=== PATIENT | female | born 2000 | race Caucasian/White ===

== ENCOUNTER 2024-10-30 08:43 | Emergency (ER) | payer BC, SELFPAY ==
--- NOTE | 2024-10-30 08:48 | ED.URI ---
HPI - URI/Sore Throat General Chief Complaint: Upper Respiratory Infection Stated Complaint: fever, sore throat, body aches, sinus inf Time Seen by Provider: 10/30/24 09:01 Source: patient and RN notes reviewed Mode of arrival: ambulatory Limitations: no limitations History of Present Illness HPI Narrative: 24-year-old female who is 6 weeks presents with concern for sore throat, body aches, runny nose. Reports intermittent fever. She has been taking Tylenol. 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 MD elicited complaint: sore throat Related Data Allergies Allergy/AdvReac Type Severity Reaction Status Date / Time No Known Allergies Allergy Verified 10/30/24 08:58 Review of Systems Review of Systems: CONSTITUTIONAL: Reports malaise, fever. EYES: Denies visual changes, redness, or discharge. ENT: Reports rhinorrhea, congestion, and sore throat. CARDIOVASCULAR: Denies chest pain, palpitations, or edema. RESPIRATORY: Denies cough. Denies dyspnea. GASTROINTESTINAL: Denies abdominal pain, nausea, vomiting, diarrhea SKIN: Denies rash or itching. MUSCULOSKELETAL: Reports myalgia. NEUROLOGIC: Denies headache. All systems reviewed & are unremarkable except as noted in HPI and below PMFSH Comments At time of signature, agree with nursing past medical, surgical, social and family history. There is no relevant family history pertinent to the presenting complaint Exam Narrative: GENERAL: Well-appearing, well-nourished, and in no acute distress. HEAD: Normocephalic EYES: PERRLA, conjunctivae clear ENT: Nares clear. Mucous membranes moist. TM pearly yin with sharp light reflex bilaterally; no tragal tenderness. Oropharynx mildly erythematous without lesions. Tonsils not enlarged and without exudate, no drooling, no hoarseness, no trismus, uvula midline. NECK: Supple. No lymphadenopathy CHEST: Clear to auscultation, breath sounds equal. No wheezing, rhonchi, rales, or stridor. No respiratory distress, speaks in full sentences. HEART: Regular rate and rhythm. No murmur heard. SKIN: Warm, dry, no rash. NEURO: Alert and oriented x3. PSYCH: Normal mood and affect Course Course Emergency Course: Patient is aware of diagnosis, understands and agrees to treatment plan. Anticipatory guidance given. Patient agrees to follow-up as directed and is aware of reasons to seek care at the emergency department. Portions of this record may have been created with voice recognition software Level of Care: Express Care Visit Vital Signs Vital signs: Reviewed. MDM - URI/Sore Throat MDM Narrative Medical decision making narrative: Differential diagnosis considered: Acuña virus, strep pharyngitis, allergic rhinitis, upper respiratory tract infection, sinusitis, rhinosinusitis, nasopharyngitis. viral pharyngitis, otitis media, otitis externa, pneumonia, bronchitis, viral cough syndrome, viral syndrome, and influenza. Exam findings show no acute concerns or changes; patient is non-toxic appearing and is in no distress. Patient is appropriate for outpatient treatment and follow-up. Lab Data Attestation: I reviewed the patient's lab results. Critical Care Time Critical Care Time Critical Care Time: No Discharge Plan Discharge Clinical Impression: Upper respiratory infection Patient Disposition: Home Condition: Stable Instructions: Upper Respiratory Infection (ED) Additional Instructions: Your rapid COVID and flu tests are negative Your rapid strep swab was negative today at [facility]. A throat culture will be sent to the laboratory for further testing. If the test is positive, you will receive a phone call within 48 hours and an appropriate antibiotic will be initiated at that time. Your symptoms are likely due to a viral illness, which is not treated with antibiotics. Viral symptoms can be present for up to a few weeks. -take Tylenol per package directions for fever or pain. -Antihistamine medication such as Benadryl at night and Zyrtec during the day can help improve symptoms. -Eat and drink things that are easy to swallow, like tea or soup, or popsicles to suck on. -Oral rinses such as: Salt water gargles and/or may use topical anesthetic (eg. Chloraseptic spray) or lozenges to relieve dryness or throat pain). -Frequent hand washing or hand twitchell operator is one of the best ways to prevent spread of infection. -Follow up with primary care provider in 2-3 days if condition is not improving; or seek ER visit if you have trouble breathing, cannot drink enough fluids, have muffled voice, difficulty opening your mouth, or severe swelling. Patient Language: Frisian Follow-up/Referrals: Scooby Chavez MD [Primary Care Provider, Internal Medicine] Time of Disposition: 09:27
[2024-10-30 08:54] VITALS: BP 122/77; PULSE 96; RESP 16; TEMP 36.8; O2SAT 100
--- OUTSIDE RECORDS SUMMARY | 2024-10-30 08:54 | XMS_ITS | Clinical Summary ---
Author Organization [facility] Address [address] [place] [address] Care Team Providers Care Evp Operations Name Role Phone Scooby Chavez MD Primary Care Provider [phone] Source Comments [facility],non-owned Affiliates and Associated Physician Practices is amultiple site organization consisting of ambulatory clinics and hospital sitesin [place], [place], [place] and [place]. This disclosure is being madepursuant to the Care Everywhere program and may not contain all information available regarding this patient. Last updated 17.[facility] Allergies No known active allergies Medications * Be aware that medications may not be up to date on this document. Alwaysverify current medications with the patient. metoprolol tartrate IR (Lopressor) 25 MG tablet Take 0.5 (one-half) tablet by mouth once daily Active Vit-Fe Fumarate-FA ( vitamin) 28-0.8 MG tablet Take 1 (one) tablet by mouth once daily Active acetaminophen (Tylenol) 500 MG capsule Take 2 (two) capsules by mouth every 6 hours 50 capsule 1 4 Active ibuprofen (Motrin) 600 MG tablet Take 1 (one) tablet by mouth every 6 hours as needed for Pain 50 tablet 1 4 Active iron polysaccharides (Niferex 150) 150 MG capsule Take 1 (one) capsule by mouth once daily 100 capsule 1 4 Active docusate sodium (Colace) 100 MG capsule Take 1 (one) capsule by mouth once daily 100 capsule 4 Active polyethylene glycol 3350 (MiraLax) 17 GM/SCOOP powder Take 17 (seventeen) g by mouth once daily 118 g 4 Active plus iron (Natatab) 29-1 MG tablet Take 1 (one) tablet by mouth once daily 100 tablet 1 4 Active Active Problems Problem Noted Date Diagnosed Date Family history of malignant hyperthermia 024 Overview (08/23/2023): paternal grandfather Permanent atrial fibrillation 08/22/2023 Uterine contractions 07/22/2023 A-fib 03/19/2023 Immunizations Immunization Administration Dates Next Due MMR 08/24/2023(Deferred: - rubella i mmune) TDAP (7yrs+) 08/25/2023 Family History Medical History Relation Name Comments Arrhthymia Father Hypertension Father Cancer - Breast Mother Relation Name Status Comments Father Alive Mother Alive Social History Tobacco Use Types Packs/Day Years Used Date Smoking Tobacco: Never Smokeless Tobacco: Never Tobacco Cessation:Counseling Given: Yes Alcohol Use Standard Drinks/Week Comments Not Currently 0 (1 standard drink = 0.6 oz pur e alcohol) Overall Financial Resource Strain (CARDIA) Answe r Date Recorded How hard is it for you to pa y for the very basics like food, housing, medical care, and heating? Not hard at all 08/22/2023 PHQ-2 Answer Date Recorded Patient Health Questionnaire-2 Score 1 07/27/2023 [facility] - Occupational Stress Questionnaire Answer Date Recorded Do you feel stress - tense, restless, nervous, or anxious, or unable to sleep at night because your mind is troubled all the time - these days? Not at all 08/22/2023 Hunger Vital Sign Answer Date Recorded Within the past 12 months, y ou worried that your food would run out before you got the money to buy more. Never true 08/22/19 24 Within the past 12 months, t he food you bought just didn't last and you didn't have money to get more. Never true 08/22/2023 PRAPARE - Transportation Answer Date Re corded In the past 12 months, has l ack of transportation kept you from medical appointments or from getting medications? No 08/08 In the past 12 months, has l ack of transportation kept you from meetings, work, or from getting things needed for daily living? No 08/22/2023 Housing Stability Vital Sign Answer Micah e Recorded In the last 12 months, was t here a time when you were not able to pay the mortgage or rent on time? No 08/22/2023 In the last 12 months, how many places have you lived? 1 08/22/2023 In the last 12 months, was t here a time when you did not have a steady place to sleep or slept in a senior living (including now)? No 08/22/2023 Garvin Depression Scale Answer Date Recorded Garvin Depression Scale Total 4 08/24/2023 The thought of harming myself has occurred to me . Never 08/24/2023 Education Answer Date Recorded What is the highest level of school you have completed or the highest degree you have received? 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 Not on file Not on coleen e Last Filed Vital Signs Vital Sign Reading Time Taken Comments Blood Pressure 128/90 08/25/2023 8:10 AM CDT Pulse 102 08/24/2023 10:47 PM CDT Temperature 36.6 C (97.9 F) 08/25/2023 8:10 AM CDT Respiratory Rate 16 08/25/2023 8:10 AM CDT Oxygen Saturation 99% 08/25/2023 8:10 AM CDT Inhaled Oxygen Concentration - - Weight 78.9 kg (174 lb) 08/22/2023 8:11 PM CDT Height 165.1 cm (5' 5) 08/22/2023 8:11 PM CDT Body Mass Index 28.96 08/22/2023 8:11 PM CDT Plan of Treatment Health Maintenance Due Date Last Done Comments HPV VACCINE (1 - 3-dose series) 06/19/2014 CHLAMYDIA/GONORRHEA SCREENING 2015 HEPATITIS B VACCINE (1 of 3 - 19+ 3-dose series) 06/19/2018 PAP SMEAR 06/19/2020 COVID-19 VACCINE (1 - 2023-2 5 season) 2023 DEPRESSION SCREENING 03/10/2024 06/23/2023 INFLUENZA VACCINE (#1) 2024 DTAP/TDAP/TD VACCINES (2 - T d or Tdap) 08/24/2033 08/25/2023 ZOSTER VACCINE (1 of 2) 06/19/2049 HEPATITIS C SCREENING Completed 02/20/2023 HIV SCREENING Completed 06/13/2023 HIB VACCINE Aged Out No longer eligi ble based on patient's age to complete this topic MENINGOCOCCAL (Group B) VACC INE SHARED DECISION-MAKING Aged Out No longer eligibl e based on patient's age to complete this topic MENINGOCOCCAL GROUPS A/C/Y/W VACCINE Aged Out No longer eligible b ased on patient's age to complete this topic PNEUMOCOCCAL VACCINE Aged Out No long er eligible based on patient's age to complete this topic Insurance [facility] Address: [facility] [id number] [place] [address] Advance Directives * Full Code (Latest Code Status on File) Date Activated Date Inactivated Comments 08/22/2023 8:32 PM 08/25/2023 1:03 PM Care Teams Evp Operations Relationship Specialty Start Date End Date Scooby Chavez MD [address] [place] [address] PCP - General Internal Medicine 06/23/23
--- OUTSIDE RECORDS SUMMARY | 2024-10-30 08:54 | XMS_ITS | Clinical Summary ---
Author Organization [facility] Address [facility] [place] [address] Care Team Providers Care Co Supervisor Grounds And Landscape Name Role Phone Ml Perezdre DO Primary Care Provider [phone] Allergies No known active allergies Medications vitamin, low iron, 27-0.8 MG tablet Take 1 tablet by mouth daily. Active ASPIRIN LOW DOSE 81 MG tablet Take 1 tablet (81 mg total) by mouth daily. 03/17/2023 Active metoclopramide (REGLAN) 10 MG tablet Take 1 tablet (10 mg total) by mouth 4 (four) times daily. Active metoprolol succinate ER (TOPROL-XL) 25 MG 24 hr tablet Take 0.5 tablets (12.5 mg total) by mouth daily. 45 tablet 1 08/26/2023 Active Active Problems Problem Noted Date Diagnosed Date A-fib ([facility]/HCC [facility]/HCC) 03/19/2023 Social History Tobacco Use Types Packs/Day Years Used Date Smoking Tobacco: Never Smokeless Tobacco: Never [facility] Utilities Answer Date Recorded In the past 12 months has e [employer], gas, oil, or water company threatened to shut off services in your home? No 03/19/2023 Humiliation, Afraid, Rape, and Kick questionnair e Answer Date Recorded Within the last year, have y ou been afraid of your partner or ex-partner? No 03/19/2023 Within the last year, have y ou been humiliated or emotionally abused in other ways by your partner or ex-partner? No Within the last year, have y ou been kicked, hit, slapped, or otherwise physically hurt by your partner or ex-partner? No 03/19/2023 Within the last year, have y ou been raped or forced to have any kind of sexual activity by your partner or ex-partner? No 03/19/2023 AUDIT-C Answer Date Recorded Q1: How often do you have a drink containing alcohol? Never 03/19/2023 Q2: How many drinks containi ng alcohol do you have on a typical day when you are drinking? Patient does not drink Q3: How often do you have si x or more drinks on one occasion? Never 03/19/2023 Overall Financial Resource Strain (CARDIA) Answe r Date Recorded How hard is it for you to pa y for the very basics like food, housing, medical care, and heating? Not hard at all 03/19/2023 PHQ-2 Answer Date Recorded Patient Health Questionnaire-2 Score 0 04/23/2023 [facility] - Occupational Stress Questionnaire Answer Date Recorded Do you feel stress - tense, restless, nervous, or anxious, or unable to sleep at night because your mind is troubled all the time - these days? Not at all 03/19/2023 Hunger Vital Sign Answer Date Recorded Within the past 12 months, y ou worried that your food would run out before you got the money to buy more. Never true 03/19/19 24 Within the past 12 months, t he food you bought just didn't last and you didn't have money to get more. Never true 03/19/2023 PRAPARE - Transportation Answer Date Re corded In the past 12 months, has l ack of transportation kept you from medical appointments or from getting medications? No 03/10 In the past 12 months, has l ack of transportation kept you from meetings, work, or from getting things needed for daily living? No 03/19/2023 Housing Stability Vital Sign Answer Micah e Recorded In the last 12 months, was t here a time when you were not able to pay the mortgage or rent on time? No 03/19/2023 In the last 12 months, how many places have you lived? 1 03/19/2023 In the last 12 months, was t here a time when you did not have a steady place to sleep or slept in a jail (including now)? No 03/19/2023 Comments No Sex and Gender Information Value Date Recorded Sex Assigned at Not on file Legal Sex Female 1:46 AM CDT Gender Identity Not on file Sexual Orientation Not on file Last Filed Vital Signs Vital Sign Reading Time Taken Comments Blood Pressure 124/64 05/15/2023 2:47 PM AIRCONDITIONING PLANT OPERATOR Pulse 102 05/15/2023 2:47 PM AIRCONDITIONING PLANT OPERATOR Temperature 37.2 C (98.9 F) 04/23/2023 9:53 AM AIRCONDITIONING PLANT OPERATOR Respiratory Rate 20 04/23/2023 9:53 AM AIRCONDITIONING PLANT OPERATOR Oxygen Saturation 99% 05/15/2023 2:47 PM AIRCONDITIONING PLANT OPERATOR Inhaled Oxygen Concentration - - Weight 72.3 kg (159 lb 6.4 oz) 05/15/2023 2:47 P M AIRCONDITIONING PLANT OPERATOR Height 165.1 cm (5' 5) 05/15/2023 2:47 PM AIRCONDITIONING PLANT OPERATOR Body Mass Index 26.53 05/15/2023 2:47 PM AIRCONDITIONING PLANT OPERATOR Plan of Treatment Health Maintenance Due Date Last Done Comments Cervical Cancer Screening Pa p Smear (Age 21 to 29) Every 3 Years 1999 Cervical Cancer Screening 1999 Annual Physical 06/19/2002 HPV Vaccines (1 - 3-dose series) 06/19/2014 DTaP, Tdap and Td Vaccines ( 1 - Tdap) 06/19/2018 Hepatitis B Vaccines (1 of 3 - 19+ 3-dose series) 06/19/2018 COVID-19 Vaccine ( - 2023-2 5 season) 2023 PHQ-2 (Physician [place]) 03/10/2024 04/23/2023 Hepatitis C Completed 02/20/2023 Meningococcal B Vaccine Aged Out No l onger eligible based on patient's age to complete this topic Meningococcal Vaccine Aged Out No mario turner eligible based on patient's age to complete this topic Pneumococcal Vaccine: Pediat rics (0 to 5 Years) and At-Risk Patients (6 to 49 Years) Aged Out No longer eligi ble based on patient's age to complete this topic RSV Immunizations Under 20 Months Aged Out No longer eligible based on patient's age to complete this topic Goals Goal Patient Goal Type Associated Problems Recent Progress Patient-Stated? Author Health - patient able to perform ADLs independently Lifestyle No Josi, Maxime L, finisher card tender Procedure Name Priority Date/Time Associated Diagnosis Comments HEPATITIS C ANTIBODY Routine 02/20/2023 4:13 PM AIRCONDITIONING PLANT OPERATOR Encounter for screening (HHS/HCC) from Last 3 Months or Most Recently Relevant to Health Maintenance Results * HEPATITIS C ANTIBODY (02/20/2023 4:13 PM AIRCONDITIONING PLANT OPERATOR) HEPATITIS C AB NON-REACTI VE NON-REACTI VE 02/21/2023 12:08 PM AIRCONDITIONING PLANT OPERATOR [facility] 02/20/2023 4:13 PM AIRCONDITIONING PLANT OPERATOR [facility] Final Result [facility] [address] [place] [address], from Last 3 Months or Most Recently Relevant to Health Maintenance Insurance Advance Directives * Full Code (Latest Code Status on File) Date Activated Date Inactivated Comments 03/20/2023 12:15 AM 03/20/2023 5:04 PM Care Teams Co Supervisor Grounds And Landscape Relationship Specialty Start Date End Date Lucy Perez DO [address] [place] [address] PCP - General OBGYN 01/05/23
--- OUTSIDE RECORDS SUMMARY | 2024-10-30 08:54 | XMS_ITS | Clinical Summary ---
Author Organization [facility] [address] [place] [address] Care Team Providers Care City Editor Name Role Phone Unknown, Notinfile Primary Care Provider Unavail able Allergies No known active allergies Medications norethindrone (Kirti) 0.35 mg tabletIndications: Contraception Take 1 tablet (0.35 mg total) by mouth daily 84 tablet 4 4 Active Active Problems No known active problems Surgical History Surgery Date Site/Laterality Comments MENISCUS SURGERY 03/10/2014 - 03/09/2015 Medical History Medical History Date Comments Atrial fibrillation (HCC) Family History Medical History Relation Name Comments Breast cancer Maternal Grandmother Breast cancer Mother onset mid 40s. Unknown genetics. Relation Name Status Comments Maternal Grandmother Mother Social History Tobacco Use Types Packs/Day Years Used Date Smoking Tobacco: Never Smokeless Tobacco: Never Tobacco Cessation:Counseling Given: Not Answered Personal Safety Answer Date Recorded Getting School Help Needed Not on file 08/24 Comments No Sex and Gender Information Value Date Recorded Sex Assigned at Not on file Legal Sex Female 4:18 PM CDT Gender Identity Not on file Sexual Orientation Not on file Obstetrics History Para Term AB IAB SAB Ectopic Multiple Livin g Live Births 1 1 Date Outcome GA Total Labor Labor/2nd/3rd Weight Sex Type Anes PTL Keke A1 A5 Name Clin 2023 Term 39w 2d 0h 22m 0h 16m/0h 06m 2.82 kg (6 lb 3.5 oz) M Vag-S pont Epidur al N Livin g 7 9 Stetsnelida crawford MD Complications:None Delivery Location:[facility] ([facility] LDR) Comments 2023 - cytotec/pitocin IO L fo h/o a-fib. [facility] [place]. Last Filed Vital Signs Vital Sign Reading Time Taken Comments Blood Pressure 100/62 10/08/2023 10:19 AM CDT Pulse - - Temperature - - Respiratory Rate - - Oxygen Saturation - - Inhaled Oxygen Concentration - - Weight 70.8 kg (156 lb) 10/08/2023 10:19 AM CDT Height 165.1 cm (5' 5) 10/08/2023 10:19 AM CDT Body Mass Index 25.96 10/08/2023 10:19 AM CDT Plan of Treatment Health Maintenance Due Date Last Done Comments Depression Screening 1999 Hepatitis C Screening 1999 Varicella Vaccines (1 of 2 - 13+ 2-dose series) 06/19/2012 HPV Vaccines (1 - 3-dose series) 06/19/2014 Hepatitis B Screening 06/19/2017 Regular Well Visit/Exam 18-64 06/19/2017 Cervical Cancer Screening 10/07/2024 10/08/2023 Influenza Vaccine (#1) 2024 DTaP/Tdap/Td Vaccine (2 - Td or Tdap) 08/24/2033 08/25/2023 Pneumococcal vaccine <65 Aged Out No longer eligible based on patient's age to complete this topic Procedures Procedure Name Priority Date/Time Associated Diagnosis Comments PAP WITH REFLEX TO HIGH RISK HPV Routine 10/08/2023 9:18 AM CDT from Last 3 Months or Most Recently Relevant to Health Maintenance Results * Pap with reflex to High Risk HPV and Genotyping (Cytology Component) (10/08/2023 9:18 AM CDT) Pap test 10/08/2023 9:18 AM CDT 10/13/2023 9:18 AM CDT Narrative 10/16/2023 1:[address] [facility] Department of Pathology [address] [place] [address] Final Report Note to Patients: This report may contain a detailed description of human tissue sent by a health care provider to the laboratory for pathologic evaluation. The content of this report is essential for diagnosis and may provide important critical findings. This information may be unfamiliar to patients to review without a medical professional present. It is advised that the patient review this report in the presence of a health care provider who can answer questions and explain the details. Patient Name: NELLIE GALLARDO Address: [address] [place] [address] Gender: F : 2000 (Age: 23) Service: Location: N : [id number] [id number] Patient Type: [facility] SPECIMEN Taken: 10/08/2023 Received: 10/13/2023 Accessioned:: 10/13/2023 Reported: 10/16/2023 Physician(s): MD Ellie Morton MD Diagnosis: SOURCE OF SPECIMEN Imaged Thinprep Pap Test w/ Reflex HPV - Biodiesel Engineering Manager Cytologic Material: STATEMENT OF ADEQUACY - Satisfactory for evaluation; endocervical/transformation zone component present GENERAL CATEGORIZATION: - Negative for intraepithelial lesion or malignancy INTERPRETATION: - Inflammation and associated reactive cellular changes CHARLEEN Peck(ASCP)Thad Brady M.D. Report Electronically Reviewed and Signed Out By Thad Brady M.D. 10/16/2023 13:13:55Specimen(s) Received: A: Imaged Thinprep Pap Test w/ Reflex HPV - Biodiesel Engineering Manager Cytologic Material Clinical History: Menstrual History: The Pap test is a screening test used to aid in the detection of cervical cancer and its precursors. It should not be the sole means by which malignant and premalignant lesions are diagnosed. Both false negative and false positive results may occur. It also has poor sensitivity for the detection of endometrial lesions and should not be used to evaluate suspected endometrial abnormalities. For these reasons it is most important to obtain Pap tests at regular intervals. The performance characteristics of some immunohistochemical stains, fluorescence in-situ hybridization tests and immunophenotyping by flow cytometry cited in this report (if any) were determined by the Surgical Pathology Department at [facility] as part of an ongoing water quality assistant program and in compliance with federally mandated regulations drawn from the Clinical Laboratory Improvement Act of 1988 (CLIA '88). Some of these tests rely on the use of analyte specific reagents and are subject to specific labeling requirements by the US Food and Drug Administration. Such diagnostic tests may only be performed in a facility that is certified by the Department of Health and Human Services as a high complexity laboratory under CLIA '88. The FDA has determined that such clearance or approval is not necessary. This test is used for clinical purposes. It should not be regarded as investigational or for research. Nevertheless, federal rules concerning the medical use of analyte specific reagents require that the following disclaimer be attached to the report: This test was developed and its performance characteristics determined by the Surgical Pathology Department [facility]. It has not been cleared or approved by the U. S. Food and Drug Administration. Ellie Piña MD LAB CYTOLOGY ORDERABL ES Final Result from Last 3 Months or Most Recently Relevant to Health Maintenance Insurance [facility] Care Teams City Editor Relationship Specialty Start Date End Date Unknown, Notinfile PCP - General 08/25/23
[2024-10-30 09:27] LABS: EDCOVIDSCREEN Negative (Negative); EDINFLUASCREEN Negative (Negative); EDINFLUBSCREEN Negative (Negative); EDSTREPNEGPOS1 Negative (Negative)
== END 2024-10-30 09:31 | disposition home or self-care (01) ==
PROVIDERS: Emergency Provider Nurse Practitioner; PCP Internal Medicine
DX: J06.9 Acute upper respiratory infection, unspecified (principal); Z20.822 Contact with and (suspected) exposure to COVID-19
CPT/HCPCS: 87081; 87426; 87804; 87880; 99203; G0463

== ENCOUNTER 2024-11-11 04:34 | Emergency (ER) | payer BC, SELFPAY ==
[2024-11-11 04:47] VITALS: BP 130/87; PULSE 122; RESP 15; TEMP 37; O2SAT 99
[2024-11-11 04:58] LABS: BEDSIDEPREGUCG Positive (Negative)
[2024-11-11] MEDS: SODIUM CHLORIDE 0.9% IV 1,000 ML 999 ML IV CONT (05:02)
[2024-11-11] MEDS: ONDANSETRON INJ 4 MG/2 ML VIAL IV PUSH (05:02)
--- NOTE | 2024-11-11 05:05 | ED_ITS ---
HPI - Nausea/Vomiting/Diarrhea General Chief complaint: Nausea/Vomiting/Diarrhea Stated complaint: vomiting Time Seen by Provider: 11/11/24 04:37 History of Present Illness HPI Narrative: This is a 24-year-old female approximately 8 weeks by menstrual period who presents to ED for nausea and vomiting. Patient states that she is walking about 1:00 a.m. due to significant nausea vomiting. She has had countless episodes of emesis stent. She did have bad morning sickness during her 1st but not nearly this med. She has not had any abdominal pain, vaginal bleeding, discharge, dysuria, hematuria. She has not been losing weight. Her 1st Ob appointment is on Friday. Related Data Allergies Allergy/AdvReac Type Severity Reaction Status Date / Time No Known Allergies Allergy Verified 10/30/24 08:58 Review of Systems 2 Review of Systems: Gen.: Denies fevers or chills Eyes: Denies eye pain or visual change ENT: Denies congestion Respiratory: Denies shortness of breath or cough CV: Denies chest pain or palpitations GI: as per HPI denies burning, urgency, frequency or hematuria Musculoskeletal: Denies back pain or muscle pain Neuro: Denies numbness, tingling, weakness or focal weakness Skin: Denies rash Except as documented, all other systems reviewed and negative Exam 2 Narrative: APPEARANCE: No acute distress, nontoxic, resting in bed EYES: EOMI HEENT: Normocephalic, atraumatic, OMM RESPIRATORY: No respiratory distress Clear to auscultation bilaterally with no rhonchi wheezing or rales. CARDIOVASCULAR: Regular rate and rhythm without murmurs rubs or gallops. ABDOMINAL: Soft, nontender, nondistended, no rebound or guarding MUSCULOSKELETAl: Moves all extremities. No clubbing, cyanosis or edema. NEURO: Awake and alert. Following commands, speech normal, no focal deficits SKIN:: Warm, dry. No rashes lesions or abrasions PSYCHIATRIC: Normal affect/mood, Course Vital Signs Vital signs: Vital Signs Temperature 98.6 F 11/11/24 04:47 Pulse Rate 122 H 11/11/24 04:47 Respiratory Rate 15 11/11/24 04:47 Blood Pressure 130/87 11/11/24 04:47 Pulse Oximetry 99 11/11/24 04:47 Oxygen Delivery Room Air 11/11/24 04:47 Temperature 98.6 F 11/11/24 04:47 Pulse Rate 93 11/11/24 06:14 Respiratory Rate 16 11/11/24 06:14 Blood Pressure 108/73 11/11/24 06:14 Pulse Oximetry 99 11/11/24 06:14 Oxygen Delivery Room Air 11/11/24 04:47 MDM - Nausea/Vomiting/Diarrhea MDM Narrative Medical decision making narrative: 24-year-old female who presents to the ED for nausea and vomiting. Jed evaluation, patient was in no acute distress, afebrile, hemodynamically stable. Abdomen is soft and nontender. Patient was given 1 L NS bolus, Zofran. On re- evaluation, she had significant improvement of her nausea and did not vomit. Patient will be given prescription for Zofran, she was also educated on doxylamine and pyridoxine use. She has an appointment on Friday with her OB which I encouraged her to go to. Patient was agreeable to this plan. Given strict return precautions. Differential Diagnosis Differential diagnosis: Likely food poisoning, gastroenteritis, dehydration and other (nausea/vomiting in , UTI) Medical Records Attestation: I reviewed the patient's medical records. Lab Data Attestation: I reviewed the patient's lab results. 11/11/24 04:58 11/11/24 04:58 Labs: Lab Results 11/11/24 11/11/24 Range/Units 04:56 04:58 WBC 12.2 H (4.5-10.0) K/mm3 RBC 4.49 (4.2-5.4) M/mm3 Hgb 13.0 (12.0-15.0) g/dL Hct 38.3 (37.0-47.0) % MCV 85.3 (80-100) fl MCH 29.0 (26-34) pg MCHC 33.9 (32-36) g/dl RDW 12.4 (11.5-14.5) % Plt Count 273 (150-375) k/mm3 MPV 8.7 (7.4-10.4) fl Immature Gran % (Auto) 0.3 (0-0.5) % Neut % (Auto) 81.2 H (45.5-73.1) % Lymph % (Auto) 10.7 L (18.3-44.2) % [place] % (Auto) 7.5 (2.6-8.5) % Eos % (Auto) 0.1 (0-4.4) % Baso % (Auto) 0.2 (0.2-1.2) % Lymph # (Auto) 1.30 (0.9-3.2) K/mm3 [place] # (Auto) 0.9 H (0.1-0.6) K/mm3 Eos # (Auto) 0.0 (0-0.3) K/mm3 Baso # (Auto) 0.0 (0.0-0.1) K/mm3 Abs Immat Gran (auto) 0.04 H (0.00-0.031) K/mm3 Absolute Neuts (auto) 9.9 H (1.3-6.7) K/mm3 Absolute Nucleated RBC 0.000 (0.0-0.012) K/mm3 Nucleated RBC % 0.0 (0.0-0.2) % Sodium 132 L (137-145) mmol/L Potassium 3.8 (3.4-5.0) mmol/L Chloride 103 (98-107) mmol/L Carbon Dioxide 21 L (22-30) mmol/L Anion Gap 8 (4-12) mmol/L BUN 6 L (7-17) mg/dL Creatinine 0.50 L (0.7-1.0) mg/dL Estim Creat Clear Calc 129 ml/min Estimated GFR > 60 (59 - ) Glucose 105 (65-110) mg/dL Calcium 9.1 (8.4-10.2) mg/dL Total Bilirubin 0.4 (0.2-1.3) mg/dL AST 22 (14-36) U/L ALT 13 (6-35) U/L Alkaline Phosphatase 74 (38-126) U/L Total Protein 7.9 (6.3-8.2) g/dL Albumin 4.1 (3.5-5.1) g/dL Lipase 56 (23-300) U/L Urine Color Yellow (Yellow) Urine Appearance Clear (Clear) Urine pH 7.5 (5.0-9.0) Ur Specific [place] 1.010 (1.001-1.035) Urine Protein Negative (Negative) mg/dL Urine Glucose (UA) Negative (Negative) mg/dL Urine Ketones Trace H (Negative) mg/dL Ur Blood (Man) Negative (Negative) Urine Nitrate Negative (Negative) Urine Bilirubin Negative (Negative) Urine Urobilinogen 0.2 (<2.0) mg/dL Leukocyte Esterase Rfl Negative (Negative) NICK/UL POC Urine HCG, Qual Positive (Negative) Discharge Plan Discharge Clinical Impression: Nausea and vomiting during Patient Disposition: Home Condition: Stable Instructions: Antibiotic Form, Nausea and Vomiting in (ED) Additional Instructions: Take Zofran as prescribed. You may also take doxylamine 20 mg and pyridoxine AKA vitamin B6 20 mg q.12 hours for nausea and vomiting. Follow-up with your OB as scheduled. Return to the ED for any new or worsening symptoms. Patient Language: Upper Sorbian Prescriptions: New ondansetron 4 mg tablet,disintegrating 4 mg PO Q8H PRN (Reason: nausea and vomiting) Qty: 30 0RF Follow-up/Referrals: Scooby Chavez MD [Primary Care Provider, Internal Medicine]
[2024-11-11 05:06] VITALS: BP 121/78; PULSE 112; RESP 18; O2SAT 98
[2024-11-11 05:10] LABS: Hematocrit 38.3 % (37.0-47.0); Hemoglobin 13.0 g/dL (12.0-15.0); Immature Granulocyte Percent A 0.3 % (0-0.5); Lymphocytes Absolute Auto 1.30 K/mm3 (0.9-3.2); Mean Corpuscular HGB Conc 33.9 g/dl (32-36); Mean Corpuscular Hemoglobin 29.0 pg (26-34); Mean Corpuscular Volume 85.3 fl (80-100); Nucleated Red Blood Cells Absolute Auto 0.000 K/mm3 (0.0-0.012); Nucleated Red Blood Cells Perc 0.0 % (0.0-0.2); Platelet Count Result 273 k/mm3 (150-375); Red Blood Count 4.49 M/mm3 (4.2-5.4); White Blood Count 12.2 K/mm3 (4.5-10.0)
[2024-11-11 05:12] LABS: Add Urine Microscopic? NO; Appearance Urine Clear (Clear); Glucose Urine UA Negative (Negative); Leukocyte Esterase Ur Negative LEU/UL (Negative); Nitrate Urine Negative (Negative); Specific Grav Ur 1.010 (1.001-1.035)
[2024-11-11 05:16] VITALS: BP 107/73; PULSE 101; RESP 20; O2SAT 98
[2024-11-11 05:22] LABS: Alanine Aminotransferase 13 U/L (6-35); Albumin Level 4.1 g/dL (3.5-5.1); Alkaline Phosphatase 74 U/L (38-126); Anion Gap 8 mmol/L (4-12); Aspartate Amino Transferase 22 U/L (14-36); Bilirubin,Total 0.4 mg/dL (0.2-1.3); Blood Urea Nitrogen 6 mg/dL (7-17); Calcium 9.1 mg/dL (8.4-10.2); Carbon Dioxide 21 mmol/L (22-30); Chloride 103 mmol/L (98-107); Estimated CRCL calculation 129 ml/min; Estimated Glomerular Filt Rate > 60; Glucose 105 mg/dL (65-110); Lipase 56 U/L (23-300); Potassium 3.8 mmol/L (3.4-5.0); Sodium 132 mmol/L (137-145); Total Protein 7.9 g/dL (6.3-8.2)
--- OUTSIDE RECORDS SUMMARY | 2024-11-11 05:46 | XMS_ITS | Clinical Summary ---
Author Organization [facility] Address [address] [place] [address] Care Team Providers Care Word Processor Operator Name Role Phone Scooby Chavez MD Primary Care Provider [phone] Source Comments [facility],non-owned Affiliates and Associated Physician Practices is amultiple site organization consisting of ambulatory clinics and hospital sitesin [place], [place], [place] and [place]. This disclosure is being madepursuant to the Care Everywhere program and may not contain all information available regarding this patient. Last updated 17.[facility] Allergies No known active allergies Medications * [...] Recorded Patient Health Questionnaire-2 Score 1 07/27/2023 [facility] - Occupational Stress [...] slept in a jail (including now)? 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
--- OUTSIDE RECORDS SUMMARY | 2024-11-11 05:46 | XMS_ITS | Clinical Summary ---
Author Organization [facility] Address [facility] [place] [address] Care Team Providers Care Ground Helper Street Railway Name Role Phone Ml Perezdre DO Primary Care Provider [phone] Allergies No known active allergies Medications vitamin, [...] Problems Problem Noted Date Diagnosed Date A-fib ([facility]/HCC [facility]/HCC) 03/19/2023 Social History Tobacco Use Types Packs/Day Years Used Date Smoking Tobacco: Never Smokeless Tobacco: Never [facility] Utilities Answer Date Recorded In the past 12 months has e [employer], gas, oil, or water company threatened to [...] Recorded Patient Health Questionnaire-2 Score 0 04/23/2023 [facility] Occupat ional Health - [...] place to sleep or slept in a mcc (including now)? No 03/19/2023 Comments No Sex and Gender Information Value Date Recorded Sex Assigned at Not on file Legal Sex Female 1:46 AM CDT Gender Identity Not on file Sexual Orientation Not on file Last Filed Vital Signs Vital Sign Reading Time Taken Comments Blood Pressure 124/64 05/15/2023 2:47 PM [employer] Pulse 102 05/15/2023 2:47 PM [employer] Temperature 37.2 C (98.9 F) 04/23/2023 9:53 AM [employer] Respiratory Rate 20 04/23/2023 9:53 AM [employer] Oxygen Saturation 99% 05/15/2023 2:47 PM [employer] Inhaled Oxygen Concentration - - Weight 72.3 kg (159 lb 6.4 oz) 05/15/2023 2:47 P M [employer] Height 165.1 cm (5' 5) 05/15/2023 2:47 PM [employer] Body Mass Index 26.53 05/15/2023 2:47 PM [employer] Plan of Treatment Health Maintenance Due Date [...] - 2023-2 5 season) 2023 PHQ-2 (Physician [place]) 03/10/2024 04/23/2023 Hepatitis C Completed 02/20/2023 Meningococcal [...] ADLs independently Lifestyle No Josi, Maxime L, motion picture narrator Procedure Name Priority Date/Time Associated Diagnosis Comments HEPATITIS C ANTIBODY Routine 02/20/2023 4:13 PM [facility] Encounter for screening (HHS/HCC) from Last 3 Months or Most Recently Relevant to Health Maintenance Results * HEPATITIS C ANTIBODY (02/20/2023 4:13 PM [facility]) HEPATITIS C AB NON-REACTI VE NON-REACTI VE 02/21/2023 12:08 PM [facility] 02/20/2023 4:13 PM [facility] Final Result [facility] [address] [place] [address], from Last 3 Months or Most Recently Relevant to Health Maintenance Insurance Advance Directives * Full Code (Latest Code Status on File) Date Activated Date Inactivated Comments 03/20/2023 12:15 AM 03/20/2023 5:04 PM Care Teams [address] Railway Relationship Specialty Start Date End Date Lucy Perez DO [address] [place] [address] PCP - General OBGYN 01/05/23
[2024-11-11 06:14] VITALS: BP 108/73; PULSE 93; RESP 16; O2SAT 99
== END 2024-11-11 06:15 | disposition home or self-care (01) ==
PROVIDERS: Emergency Provider Student in an Organized Health Care Education/Training Program; PCP Internal Medicine
DX: O21.9 Vomiting of pregnancy, unspecified (principal); Z3A.08 8 weeks gestation of pregnancy
CPT/HCPCS: 36415; 80053; 81003; 81025; 83690; 85025; 96361; 96374; 99284; J2405; J7030

== ENCOUNTER 2024-12-20 13:28 | Outpatient (CLI) | payer BC, SELFPAY ==
--- OUTSIDE RECORDS SUMMARY | 2024-12-20 14:44 | XMS_ITS | Clinical Summary ---
Author Organization [facility] Address Counts include 234 beds at the [facility] [place] [address] Care Team Providers Care Resource Manager Forester Name Role Phone Ml Perezdre DO Primary Care Provider [phone] Allergies No known active allergies Medications vitamin, [...] Problems Problem Noted Date Diagnosed Date A-fib 03/19/2023 Social History Tobacco Use Types Packs/Day Years Used Date Smoking Tobacco: Never Smokeless Tobacco: Never [facility] Utilities Answer Date Recorded In the past 12 months has [employer], gas, oil, or water [employer] threatened to shut off services in your [...] Recorded Patient Health Questionnaire-2 Score 0 04/23/2023 [facility] of Occupat ional [facility] - Occupational Stress Questionnaire Answer Date Recorded [...] place to sleep or slept in a detention (including now)? No 03/19/2023 Comments No Sex and Gender Information Value Date Recorded Sex Assigned at Not on file Legal Sex Female 1:46 AM CDT Gender Identity Not on file Sexual Orientation Not on file Last Filed Vital Signs Vital Sign Reading Time Taken Comments Blood Pressure 124/64 05/15/2023 2:[address] MAINTENANCE CREW WORKER Pulse 102 05/15/2023 2:[address] MAINTENANCE CREW WORKER Temperature 37.2 C (98.9 F) 04/23/2023 9:[address] MAINTENANCE CREW WORKER Respiratory Rate 20 04/23/2023 9:[address] MAINTENANCE CREW WORKER Oxygen Saturation 99% 05/15/2023 2:[address] MAINTENANCE CREW WORKER Inhaled Oxygen Concentration - - Weight 72.3 kg (159 lb 6.4 oz) 05/15/2023 2:[address] MAINTENANCE CREW WORKER Height 165.1 cm (5' 5) 05/15/2023 2:[address] MAINTENANCE CREW WORKER Body Mass Index 26.53 05/15/2023 2:[address] MAINTENANCE CREW WORKER Plan of Treatment Health Maintenance Due Date Last Done Comments Cervical Cancer Screening Pa p Smear (Age 21 to 29) Every 3 Years 2000 Cervical Cancer Screening 2000 Annual Physical 06/19/2002 HPV Vaccines (1 - 3-dose series) 06/19/2014 DTaP, Tdap and Td Vaccines ( 1 - Tdap) 06/19/2018 Hepatitis B Vaccines (1 of 3 - 19+ 3-dose series) 06/19/2018 PHQ-2 (Physician [place]) 03/10/2024 04/23/2023 COVID-19 Vaccine (1 - 2023-2 5 season) 2024 Influenza Adult (#1) 2024 Hepatitis C Completed 02/20/2023 Meningococcal B Vaccine [...] patient able to perform ADLs independently Lifestyle Maxime Garcia die reamer Procedure Name Priority Date/Time Associated Diagnosis Comments HEPATITIS C ANTIBODY Routine 02/20/2023 4:[address] MAINTENANCE CREW WORKER Encounter for screening (HHS/HCC) from Last 3 Months or Most Recently Relevant to Health Maintenance Results * HEPATITIS C ANTIBODY (02/20/2023 4:[address] MAINTENANCE CREW WORKER) HEPATITIS C AB NON-REACTI VE NON-REACTI VE 02/21/2023 12:[address] MAINTENANCE CREW WORKER [facility] 02/20/2023 4:[address] MAINTENANCE CREW WORKER [facility] Final Result [facility] [address] [place] [id number], from Last 3 Months or Most Recently Relevant to Health Maintenance [place] [address] [place] [address] Advance Directives * Full Code (Latest Code Status on File) Date Activated Date Inactivated Comments 03/20/2023 12:15 AM 03/20/2023 5:04 PM Care Teams Resource Manager Forester Relationship Specialty Start Date End Date Lucy Perez DO [address] [place] [address] PCP - General OBGYN 01/05/23
--- OUTSIDE RECORDS SUMMARY | 2024-12-20 14:44 | XMS_ITS | Clinical Summary ---
Author Organization [facility] Address [address] [place] [address] Care Team Providers Care Behavioral Health Specialist Name Role Phone Scooby Chavez MD Primary Care Provider [phone] Source Comments [facility],non-owned Affiliates and Associated Physician Practices is amultiple site organization consisting of ambulatory clinics and hospital sitesin [place], [place], [place]. This disclosure is being madepursuant to the Care Everywhere program and may not contain all information available regarding this patient. Last updated 17.[facility] Allergies No known active allergies Medications * [...] fibrillation 08/22/2023 Uterine contractions 07/22/2023 A-fib 03/19/2023 Encounters Date Type Department Care Team Description 12/13/2024 Travel from Last 3 Months Immunizations Immunization Administration Dates Next Due MMR [...] Recorded Patient Health Questionnaire-2 Score 1 07/27/2023 [facility] - Occupational Stress Questionnaire Answer Date [...] place to sleep or slept in a [place] health care facility (including now)? 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 on file [...] 08/22/2023 8:11 PM CDT Plan of Treatment Upcoming Encounters Date Type Department Care Team (Late st Contact Info) Description 01/18/2025 9:00 AM RAW STOCK MACHINE FEEDER Appointment [facility] [address] [place] [address] 01/18/2025 9:45 AM RAW STOCK MACHINE FEEDER Appointment [facility] [address] [place] [address] Health Maintenance Due Date Last Done Comments HIV SCREENING 06/19/2014 HPV VACCINE (1 - 3-dose series) 06/19/2014 HEPATITIS B VACCINE (1 of 3 - 19+ 3-dose series) 06/19/2018 DEPRESSION SCREENING 03/10/2024 06/23/2023 COVID-19 VACCINE (1 - 2023-2 5 season) 2024 INFLUENZA VACCINE (#1) 2024 12/29/2023 CHLAMYDIA/GONORRHEA SCREENING 11/15/2025 11/15/2024 PAP SMEAR 10/07/2026 10/08/2023 DTAP/TDAP/TD VACCINES (2 - T d or Tdap) 08/24/2033 08/25/2023 ZOSTER VACCINE (1 of 2) 06/19/2049 HEPATITIS C SCREENING Completed 02/20/2023 HIB VACCINE Aged Out No longer eligi [...] patient's age to complete this topic Insurance [employer] Advance Directives * Full Code (Latest Code Status on File) Date Activated Date Inactivated Comments 08/22/2023 8:32 PM 08/25/2023 1:03 PM Care Teams Behavioral Health Specialist Relationship Specialty Start Date End Date Scooby Chavez MD [address] [place] [address] PCP - General Internal Medicine 06/23/23
--- OUTSIDE RECORDS SUMMARY | 2024-12-20 14:44 | XMS_ITS | Data Portability ---
Author Organization [facility] Address [address] [place] [address] Assessment Encounter Date Assessment Date Assessment LastModified by Organization Details LastModified Time 11/15/2024 11/15/2024 Patient is ___weeks . Discussed plan. Not available 11/15/2024 17:05:13 Plan of Treatment Reminders Order Date Submit Date Provider Last Modified By Organization Details Last Modified Time Details Appointments xANY 2024 11:00A M Patient Financial Coor Not available Not available Not available OB ROUTINE 2024 11:15A M TAWNY GERONIMO MD Not available Not available Not available Lab drug screen, urine 2024 025 [email or web address] [address], [address], [place], [address], 12/17/2024 11:51:29 Referral None recorded . Procedures None recorded . Surgeries None recorded . Imaging US, obstetri c, nuchal transluc ency 2024 025 [email or web address] [address], [address], [place], [address], 12/17/2024 11:40:15 US, obstetri c, transvag inal 2024 025 [email or web address] [address], [address], [place], [address], 11/16/2024 19:42:30 Medication Orders Adult Low Dose Aspirin 81 mg tablet,d elayed release 2024 025 [id number] [address], [place], [place], [id number], 12/17/2024 11:58:12 Patient TargetsNo targets recorded. Patient InstructionsNo instructions recorded. Reason for Referral None Reported. Results Created Date Observation Date Name Description Value Unit Range Abnormal Flag Note LastModifiedBy Organization Detail LastModifiedTime 11/16/1911/15/2024 CT/GC AND TRICH OMONA S VAGIN AI (RRNA ), URINE chlamydia trachomatis, PCR Negati ve negati ve Not Available [facility] (Lab) [address], [place], [address], 11/16/2024 14:47:12 11/16/19 25 11/15/2024 CT/GC AND TRICH OMONA S VAGIN AI (RRNA ), URINE neisseria gonorrhoeae, PCR Negati ve negati ve Not Available [facility] (Lab) [address], [place], [address], 11/16/2024 14:47:12 11/16/19 25 11/15/2024 CT/GC AND TRICH OMONA S VAGIN AI (RRNA ), URINE trichomonas vaginalis ribosomal RNA (rrna) Negati ve negati ve Not Available [facility] (Lab) [address] [place], [address], 11/16/2024 14:47:12 12/18/1912/17/2024 drug scree n, urine Amphetamines : negati ve Not Available [place] [address], [place], [address], 12/17/2024 11:48:35 12/18/19 25 12/17/2024 drug scree n, urine Cannabinoids : negati ve Not Available [place] [address], [place], [address], 12/17/2024 11:48:35 12/18/19 25 12/17/2024 drug scree n, urine Cocaine: negati ve Not Available [place] [address], [place], [address], 12/17/2024 11:48:35 12/18/19 25 12/17/2024 drug scree n, urine Opiates: negati ve Not Available [facility] [address], [place], [address], 12/17/2024 11:48:35 12/18/19 25 12/17/2024 drug scree n, urine Phenocyclidi ne: negati ve Not Available [facility] [address], [place], [address], 12/17/2024 11:48:35 12/18/19 25 12/17/2024 drug scree n, urine Barbiturates : negati ve Not Available [facility] [address], [place], [address], 12/17/2024 11:48:35 12/18/19 25 12/17/2024 drug scree n, urine Benzodiazepi gee: negati ve Not Available [facility] [address], [place], [address], 12/17/2024 11:48:35 12/18/19 25 12/17/2024 drug scree n, urine Ethanol: negati ve Not Available [facility] [address], [place], [address], 12/17/2024 11:48:35 12/18/19 25 12/17/2024 drug scree n, urine Hallucinogen s: negati ve Not Available [place] [address], [place], [address], 12/17/2024 11:48:35 12/18/19 25 12/17/2024 drug scree n, urine Inhalants: negati ve Not Available [place] [address], [place], [address], 12/17/2024 11:48:35 12/18/1912/17/2024 drug scree n, urine Anabolic Steroids: negati ve Not Available [place] [address], [place], [address], 12/17/2024 11:48:35 11/16/19 25 11/15/2024 US, obste tric, trans vagin al No observ ation record ed. [email or web address] [place] [address], [place], [address], 11/15/2024 18:18:42 11/16/19 25 11/15/2024 US, obste tric, follo w-up No observ ation record ed. [email or web address] [address], [place], [address], 11/18/2024 13:27:51 12/18/19 25 12/17/2024 US, obste tric, nucha l trans lucen cy No observ ation record ed. [email or web address] [place] [address], [place], [address], 12/17/2024 13:01:43 12/18/19 25 12/17/2024 US, obste tric, follo w-up No observ ation record ed. [email or web address] [address], [place], [address], 12/17/2024 12:09:38 Result Notes None recorded. Problems Name Problem SNOMED Code Status Onset Date Resolution Date Notes Provider Name and Address Organization Details Recorded Time [id number] Active [place] - [facility] 17:07:59 Problem Notes None recorded. Procedures Surgical History Date Name Laterality Status Provider Name and Address Organization Details Recorded Time 11/12/19 23 Date of Last Pap Smear completed Eryn Oden [facility] 11/15/2024 17:10:58 03/10/19 15 reconstruction of anterior cruciate ligament of knee joint completed Eryn Oden [facility] 11/15/2024 17:15:10 Imaging Results None recorded. Procedure Notes None recorded. Medical Equipment None Reported. Allergies No known drug allergies Medications Name Sig Start Date Stop Date Status Note LastModified by Organization Details LastModified Time ondansetron 8 mg disintegrati ng tablet Place 1 tablet twice a day by translingua l route as needed. 2024 active Not Available Not Available Not Avai lable Adult Low Dose Aspirin 81 mg tablet,delay ed release Take 1 tablet every day by oral route. 2024 active Not Available Not Available Not Avai lable active Not Available Not Avai lable Not Available Vitals Date Recorded Body height Body mass index (BMI) Body weight Systolic And Diastolic Provider Name and Address Organization Details Last Updated DateTime 11/15/2024 165.1 cm 26.1 kg/m2 06435 g 127/78 mm[Hg] Eryn Oden [facility] 11/15/2024 17:08:52 Date Recorded Systolic And Diastolic Provider Name and Address Organization Details Last Updated DateTime 12/17/2024 122/88 mm[Hg] Janay Amaya CNM [address], [place], [address], [facility] 12/17/2024 12:02:13 Date Recorded Body height Body mass index (BMI) Body weight Systolic And Diastolic Provider Name and Address Organization Details Last Updated DateTime 12/17/2024 165.1 cm 26 kg/m2 84574.41 g 152/82 mm[Hg] Leslie Medina [facility] 12/17/2024 11:38:56 Social History Question Answer Notes LastModified by Organizat ion Details LastModified Time Tobacco Smoking Status Never Smoker Eryn el [facility] 11/15/2024 17:14:33 Do You Have An Advance Directive? No Information n ot available 11/15/2024 Are You Blind Or Do You Have Difficulty Seeing? No Information n ot available 11/15/2024 What Is Your Level Of Caffeine Consumption? Occasional Information not available 11/15/2024 How Much Tobacco Do You Chew? None Information not available 11/15/2024 In The 14 Days Before Symptom Onset, Have You Had Close Contact With A Laboratory-confirm ed COVID-19 While That Case Was Ill? No Information n ot available 11/15/2024 In The 14 Days Before Symptom Onset, Have You Had Close Contact With A Person Who Is Under Investigation For COVID-19 While That Person Was Ill? No Information not available 11/15/2024 Have You Been To An Area Known To Be High Risk For COVID-19? Yes Information not available 11/15/2024 Are You Deaf Or Do You Have Serious Difficulty Hearing? No Information not available 11/15/2024 What Type Of Diet Are You Following? REGULAR Information n ot available 11/15/2024 What Is The Highest Grade Or Level Of School You Have Completed Or The Highest Degree You Have Received? [id number] Information not available 11/15/2024 Are There Any Guns Present In Your Home? No Information not available 11/15/2024 Do You Use Protection During Sex? Usually Information not available 11/15/2024 Do You Use Your Seat Belt Or Car Seat Routinely? Yes Information not available 11/15/2024 Are You Sexually Active? Yes Information not available 12/17/2024 Do You Have Smoke And Carbon Monoxide Detectors In Your Home? Yes Information not available 11/15/2024 How Much Tobacco Do You Smoke? No Information not available 11/15/2024 Do You Use Sunscreen Routinely? Yes Information not available 11/15/2024 Has Tobacco Cessation Counseling Been Provided? No Information not available 11/15/2024 Have You Used IV Drugs? No Information not available 11/15/2024 Do You Have Difficulty Walking Or Climbing Stairs? No [email or web address] Information not available 12/17/2024 Sex: Unknown Functional Status Question Answer Note LastModified by Organizat ion Details LastModified Time Do you use any illicit or recreational drugs? No Information not available 11/15/2024 Do you or have you ever used any other forms of tobacco or nicotine? No Information not available 11/15/2024 What is your level of alcohol consumption? None Information not available 11/15/2024 Are you currently employed? Yes [email or web address] Information not available 12/17/2024 Are you able to walk independently without assistance or assistive devices? [email or web address] Information not available 11/15/2024 Are you able to care for yourself independently? 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 No [email or web address] Information not available 12/17/2024 What is your exercise level? Moderate Information not available 11/15/2024 Mental Status Question Answer Note LastModified by Organization D etails LastModified Time Do you feel stressed (tense, restless, nervous, or anxious, or unable to sleep at night)? [id number] [email or web address] Information not available 12/17/2024 Family History Relationship Description Onset Age of this Age Resolved Age Notes LastModified by Organization Details LastModified Time Paternal Grandfather Heart disease Not available 2024 17:09:13 Father Heart disease Not available 2024 17:09:13 Medical History Condition Response Allergies (Food, seasonal, environmental ) N Other N Breast Cancer N Drug/Latex Allergies/Reactions N Blood Transfusion N Dermatologic Disorders N Lung Disease N Defects or Inherited Disease N Breast Problem N Gestational Diabetes N Hematologic disorders N Anesthesia Complications N History of STI N Deep Vein Thrombosis N Polycystic ovary syndrome N Anxiety Disorder N Autoimmune disease N Arthritis N Infertility N Polyps N Acid Reflux (GERD) N History of abnormal pap N Cancer N Stroke N Varicosities N Neurologic/Epilepsy N Endometriosis N High Cholesterol N Headaches N Fibromyalgia N Kidney Disease N Heart Problems Y Kidney or Bladder Problems N Thyroid Problems N GI Problems N Eating Disorder N Anemia N Art (IVF or FET) N Psychiatric Illness N Ovarian Cancer N Diabetes N Pulmonary (TB, Asthma) N Hepatitis/Liver Disease N No Past Medical History N Eczema N Urinary Tract Infection N Abuse/Domestic Violence N Asthma N Trauma/Violence N Depression/ depression N Heart Disease N Pre-Eclampsia N Hypertension N Osteoporosis N Thrombophilias N Gynecological History Statement/Question Response Flow Moderate Date of LMP 09/17/2024 On BCP's at Conception? N N Was last menstrual period normal Y STIs/STDs N HPV Vaccine Y Duration of Flow (days) 5 Current Control Method Age at First Child 23 Are cycles usually normal Y Frequency of Cycle (Q days) 27 Sexually Active? Y N/A Menses Monthly Y Age of first menstrual cycle 10 Date of Last Pap Smear 11/11/2022 Sexual Problems? N Desired Control Method Condoms LMP Approximate N Obstetrics History GPAL:G 2 P 1 0 0 1 Type Value Full Term 1 Living 1 Total 2 Past Encounters Encounter ID Performer Location Encounter Start Date Encounter Closed Date Diagnosis/Indication Diagnosis SNOMED-CT Code Diagnosis ICD10 Code Diagnosis IMO Codes Diagnosis Note [id number] Aniceto Mcdonald MD [facility] [address] [address] 11/15/2024 16:19:50 11/15/2024 16:54:43 Uterine size for dates discrepancy 576604654 O26.841 Z3A.01 [id number] Aniceto Mcdonald MD [facility] [address] [address] 11/15/2024 16:21:39 11/15/2024 17:59:46 Amenorrhea 46863759 N91.2 [id number] this patient is a 29-year-ol d female who presents for amenorrhea . She is a positive test. Ultrasound revealed a 1st trimester gestation. Patient has no complaints . We talked about early care. Talked about genetic screening. We talked about her ultrasound results. We talked about the 12 week ultrasound that has genetic screening components . She was given recommenda tions on exercise, diet, over-the-c ounter medication s. We reviewed her obstetric history. We reviewed her medical history. We reviewed her social history. She will begin routine care at her next visit. History of AFib in . [facility] . [id number] [address] [address] 12/17/2024 10:55:00 12/17/2024 12:16:20 care status 905851399 Z34.91 [id number] Supraventr icular tachycardia 8089537 I47.10 [id number] Aniceto Mcdonald MD [place] [address] [address] 12/17/2024 10:56:39 12/17/2024 11:28:31 screening 610524101 Z36.82 Z3A.13 [id number] Health Concerns Section Related Observation LastModified by Organization Detai ls LastModified Time None Recorded Concern Status LastModified by Organization Details LastModified Time None Recorded Advance Directives Directive N: Payers Insurance Date Sequence Insurance Name Policy Number Policy Gonzalez Covered Member ID Gonzalez Member ID Guarantor Name 12/14/2024 1 [facility] ([facility]) [id number] Varun Schmitz [id number] Varun Schmitz Notes Date Note Type Note Provider Name and Address Organization Details Recorded Time 11/15/2024 text/html Generic HPI TemplateReported by Patient this patient is a 29-year-old female who presents for amenorrhea. She is a positive test. Ultrasound revealed a 1st trimester gestation. Patient has no complaints. We talked about early care. Talked about genetic screening. We talked about her ultrasound results. We talked about the 12 week ultrasound that has genetic screening components. She was given recommendations on exercise, diet, [id number] medications. We reviewed her obstetric history. We reviewed her medical history. We reviewed her social history. She will begin routine care at her next visit. Aniceto Mcdonald MD [address], [place], [address], [facility] 11/15/2024 17:53:48 OBGyn Episode Ob Episode Information Episode Created Date Number of Fetuses Patient Bloodtype Patient rh Status Prepregnancy Weight lbs Domestic Partner Domestic Partner Phone Father Name Document Preparer Microfilming Status 11/16/19 25 1 CLOSED Fetus Data First Name Last Name Admitted to NICU Weight (g) Sex Living Outcome Pediatric Complications Fetus ID Race Codes Race Delivery Type 2806.37 3704 M Full Term [id number] Vaginal Delivery Polo Calculation Initial Polo Date Initial Exam Date Initial Exam Provider Initial Ultrasound Date Last Menstrual Period Date Ultra Sound Weeks Gestation 0 Eighteen To Twenty Week Polo Update Ultra Sound Date Fundal Height At Umbil Quickening Date Ultra Sound Latest Weeks Gestation Final Polo Confirmed By Final Polo Confirmed Date Final Polo Date Ultra Sound Latest Days Gestation 0 0 Menstrual History Last Menstrual Date Menses Monthly On Bcp Conception Prior Menses Frequency Hcg Plus Date Menarche Onset Age Delivery Information Delivery Date Delivery Type Labor Anesthesia Weeks Gestation Incision Type Labor Labor Length Hrs Delivered By Post Complications Tubal Sterilization Discharge Date Comments 4 39.2 Discharge Information Feeding Method Contraceptive Method Maternal HG B and HCT Levels Ob Episode Information Episode Created Date Number of Fetuses Patient Bloodtype Patient rh Status Prepregnancy Weight lbs Domestic Partner Domestic Partner Phone Father Name Document Preparer Microfilming Status 12/17/19 25 1 157 OPEN Fetus Data First Name Last Name Admitted to NICU Weight (g) Sex Living Outcome Pediatric Complications Fetus ID Race Codes Race Delivery Type [id number] Polo Calculation Initial Polo Date Initial Exam Date Initial Exam Provider Initial Ultrasound Date Last Menstrual Period Date Ultra Sound Weeks Gestation 12/16/2024 11/15/2024 09/17/2024 7 Eighteen To Twenty Week Polo Update Ultra Sound Date Fundal Height At Umbil Quickening Date Ultra Sound Latest Weeks Gestation Final Polo Confirmed By Final Polo Confirmed Date Final Polo Date Ultra Sound Latest Days Gestation 12/18/19 25 0 06/25/19 26 0 Pre- Flowsheet Flowsheet Date 12/17/2024 Oleary Score Blood Edema Fundus Height Fundus Units Glucose Ketones Leukocytes Nitrite Labor Signs Protein Cervic Dilation Cervic Effacement Cervic Station Type Weight in lbs Pre/Post Dialysis Refused BP Diastolic BP Location Tested BP Systolic BP Type Fetus Heart Rate Present Fetus Movement Comments Flowsheet Date 12/17/2024 Oleary Score Blood Edema Fundus Height Fundus Units Glucose Ketones Leukocytes Nitrite Labor Signs Protein Cervic Dilation Cervic Effacement Cervic Station Type Weight in lbs Pre/Post Dialysis Refused Weight 156.028247059241 BP Diastolic BP Location Tested BP Systolic BP Type 82 L arm 152 sitting 88 122 Fetus Heart Rate Present Fetus Movement A No Comments reviewed previous hx, has mfm referral, no complications with previous vaginal delivery, us reviewed, plan surveillance system monitor for complaints of skipped beats only at hs, precautions and education f/u 4 weeks Menstrual History Last Menstrual Date Menses Monthly On Bcp Conception Prior Menses Frequency Hcg Plus Date Menarche Onset Age 0709/17/2024 true false 28 11 Delivery Information Delivery Date Delivery Type Labor Anesthesia Weeks Gestation Incision Type Labor Labor Length Hrs Delivered By Post Complications Tubal Sterilization Discharge Date Comments Discharge Information Feeding Method Contraceptive Method Maternal HG B and HCT Levels
--- OUTSIDE RECORDS SUMMARY | 2024-12-20 14:44 | XMS_ITS | Clinical Summary ---
Author Organization [facility] [address] Address [address] [place] [address] Care Team Providers Care Wind Turbine Engineer Name Role Phone Unknown, Notinfile Primary Care [...] 7 [phone] Stetsnelida crawford MD Complications:None Delivery Location:[facility] ([facility] [address]) Comments 2023 - cytotec/pitocin IO L fo h/o a-fib. [facility] [place]. Last Filed Vital Signs Vital Sign Reading [...] AM CDT Narrative 10/16/2023 1:13 PM CDT [facility] Department of Pathology [address] [place] [address] Final Report Note to Patients: This report [...] the details. Patient Name: NELLIE GALLARDO Address: [address] [place] [address] Gender: F : 2000 (Age: 23) Service: Location: N : [id number] [facility] #: [id number] Patient Type: [facility] SPECIMEN Taken: 10/08/2023 Received: 10/13/2023 Accessioned:: 10/13/2023 Reported: 10/16/2023 Physician(s): MD Ellie Morton MD Diagnosis: SOURCE OF SPECIMEN Imaged Thinprep Pap Test w/ Reflex HPV - Mapping Technician Cytologic Material: STATEMENT OF ADEQUACY - Satisfactory for evaluation; endocervical/transformation zone component present GENERAL CATEGORIZATION: - Negative for intraepithelial lesion or malignancy INTERPRETATION: - Inflammation and associated reactive cellular changes CHARLEEN Peck(ASCP)Thad Brady M.D. Report Electronically Reviewed and Signed Out By Thad Brady M.D. 10/16/2023 13:13:55Specimen(s) Received: A: Imaged Thinprep Pap Test w/ Reflex HPV - Mapping Technician Cytologic Material Clinical History: Menstrual History: The [...] determined by the Surgical Pathology Department at [facility] as part of an ongoing principal quality engineer program and in compliance with federally mandated [...] characteristics determined by the Surgical Pathology Department [facility]. It has not been cleared or approved by the [place]. [place]. Food and Drug Administration. Ellie Piña MD LAB CYTOLOGY ORDERABL ES Final Result from Last 3 Months or Most Recently Relevant to Health Maintenance Insurance [facility] Care Teams Wind Turbine Engineer Relationship Specialty Start Date End Date Unknown, Notinfile PCP - General 08/25/23
--- NOTE | 2024-12-29 12:18 | WPDHOLTEREM ---
Holter/Event Monitor Holter/Event Monitor Date of procedure: 12/20/24 Holter/Event Procedure: 3-7 Day Holter Monitor Indications: Palpitations Conclusion: 1. 3 days holter monitor on 12/20/24. 2. Underlying rhythm is sinus rhythm. HR range 62-139 bpm; average HR 88 bpm. 3. There are occasional premature supraventricular complexes and rare supraventricular couplets. No supraventricular tachycardia. 4. There are rare premature ventricular complexes, rare ventricular couplets and longest ventricular trigeminy was 5.7 seconds. No ventricular tachycardia. 5. No significant pauses greater than 3 seconds. 6. Patient reports 6 episodes of symptoms of irregular beats which demonstrate sinus rhythm, HR range 78-87 bpm with 6 episodes with PAC or PVC.
== END 2024-12-20 13:29 | disposition home or self-care (01) ==
PROVIDERS: PCP Internal Medicine; Visit Provider Advanced Practice Midwife
DX: R00.2 Palpitations (principal); I49.1 Atrial premature depolarization; I49.3 Ventricular premature depolarization; R00.8 Other abnormalities of heart beat
CPT/HCPCS: 93242

== ENCOUNTER 2025-02-28 09:18 | Outpatient (CLI) | payer BC, SELFPAY ==
--- NOTE | ~2025-02-28 | XR_ITS ---
Examination: XR chest 2V Clinical History: COUGH/WHEEZING/FEVER Comparison: None Technique: PA and Lateral Findings: Cardiomediastinal silhouette normal size and configuration. Lungs clear. No acute bony abnormality. IMPRESSION: 1. No acute cardiopulmonary findings. Reviewed, dictated and finalized at location R. [facility]
[2025-02-28 09:37] LABS: Hematocrit 37.9 % (35.0-49.0); Hemoglobin 12.5 g/dL (12.0-15.0); Mean Corpuscular HGB Conc 33.0 g/dL (32-36); Mean Corpuscular Hemoglobin 28.4 pg (27.0-31.0); Mean Corpuscular Volume 86.1 fL (78.0-102.0); Platelet Count Result 232 K/mm3 (150-420); Red Blood Count 4.40 M/mm3 (4.20-5.40); White Blood Count 10.0 K/mm3 (4.8-10.8)
[2025-02-28 09:49] LABS: Alanine Aminotransferase 22 U/L (6-35); Albumin Level 4.2 g/dL (3.5-5.1); Alkaline Phosphatase 85 U/L (38-126); Anion Gap 9 mmol/L (4-12); Aspartate Amino Transferase 30 U/L (14-36); Bilirubin,Total 0.3 mg/dL (0.2-1.3); Blood Urea Nitrogen 5 mg/dL (7-17); Calcium 8.8 mg/dL (8.4-10.2); Carbon Dioxide 23 mmol/L (22-30); Chloride 102 mmol/L (98-107); Estimated Glomerular Filt Rate > 60; Glucose 96 mg/dL (65-110); Osmolality Calculated 275 mOsm/kg (285-295); Potassium 3.9 mmol/L (3.4-5.0); Sodium 134 mmol/L (137-145); Total Protein 7.8 g/dL (6.3-8.2)
[2025-02-28 10:01] LABS: Strep Group A RT-PCR NOT DETECTED (Negative)
[2025-02-28 10:13] LABS: Influenza A QL RT-PCR Positive (Negative); Influenza B QL RT-PCR Negative (Negative); RSV RNA, RT-PCR Negative (Negative); SARS-CoV-2 RNA PCR Negative (Negative)
--- OUTSIDE RECORDS SUMMARY | 2025-02-28 10:24 | XMS_ITS | Continuity of Care Document ---
Author Organization [facility] Address [address] [place] [address] Assessment No assessment recorded. Plan of Treatment Reminders Order Date Submit Date Provider Last Modified By Organization Details Last Modified Time Details Appointments OB ROUTINE 2025 11:15A Dereck GERONIMO MD Not available Not available Not available Lab None recorded . Referral None recorded . Procedures None recorded . Surgeries None recorded . Imaging None recorded . Medication Orders None recorded . Patient TargetsNo targets recorded. Patient InstructionsNo instructions recorded. Reason for Referral None Reported. Results Created Date Observation Date Name Description Value Unit Range Abnormal Flag Note LastModifiedBy Organization Detail LastModifiedTime 12/18/1912/17/2024 CULTU RE: URINE result report SEE RESULT S BELOW Test: Cultu re: Urine Speci men Sourc e: Urine - Clean Catch Speci men Type: Urine Speci men Date: 12/17 1106 Resul t Date: 12/19 1259 Resul t Statu s: Final resul t Abnor mal: No Resul ting Lab: [facility] [address] [facility] [address] Tel: [phone] CULTU RE ----- ----- ----- --- Cultu re resul t (>=3 organ isms prese nt) indic ates possi ble conta minat ion. Repea t cultu re if sympt oms indic ate. Not Available [facility] (Lab) [address] [facility], [place], [address], 12/19/2024 14:02:05 12/18/19 25 12/17/2024 CBC W/DIF F WBC 8.5 10'3/ uL 3.5-10 .5 Not Available [facility] (Lab) [address] [facility], [place], [address], 12/20/2024 14:38:43 12/18/19 25 12/17/2024 CBC W/DIF F RBC 4.70 10'6/ uL (based on docume nted legal sex) 3.80-5 .20 Not Available [facility] (Lab) [address] [facility], [place], [address], 12/20/2024 14:38:43 12/18/19 25 12/17/2024 CBC W/DIF F HGB 13.4 g/dL (based on docume nted legal sex) 11.6-1 5.4 Not Available [facility] (Lab) [address] [facility], [place], [address], 12/20/2024 14:38:43 12/18/19 25 12/17/2024 CBC W/DIF F HCT 40.7 % (based on docume nted legal sex) 34.0-4 5.0 Not Available [facility] (Lab) [address] [facility], [place], [address], 12/20/2024 14:38:43 12/18/19 25 12/17/2024 CBC W/DIF F MCV 86.6 fL 80.0-9 9.0 Not Available [facility] (Lab) [address] [facility], [place], [address], 12/20/2024 14:38:43 12/18/19 25 12/17/2024 CBC W/DIF F MCH 28.5 pg 27.0-3 4.0 Not Available [facility] (Lab) [address] [facility], [place], [address], 12/20/2024 14:38:43 12/18/19 25 12/17/2024 CBC W/DIF F MCHC 32.9 g/dL 32.0-3 5.5 Not Available [facility] (Lab) [address] [facility], [place], [address], 12/20/2024 14:38:43 12/18/19 25 12/17/2024 CBC W/DIF F RDW 13.2 % 11.0-1 5.0 Not Available [facility] (Lab) [address] [facility], [place], [address], 12/20/2024 14:38:43 12/18/19 25 12/17/2024 CBC W/DIF F plt 307 10'3/ uL 150-40 0 Not Available [facility] (Lab) [address] [facility], [place], [address], 12/20/2024 14:38:43 12/18/19 25 12/17/2024 CBC W/DIF F MPV 9.8 fL 8.8-12 .1 Not Available [facility] (Lab) [address] [facility], [place], [address], 12/20/2024 14:38:43 12/18/19 25 12/17/2024 CBC W/DIF F NRBC's 0.0 % 0.0 Not Available [facility] (Lab) [address] [facility], [place], [address], 12/20/2024 14:38:43 12/18/19 25 12/17/2024 CBC W/DIF F absolute NRBCs 0.0 10'3/ uL no refere nce range establ ished Not Available [facility] (Lab) [address] [facility], [place], [address], 12/20/2024 14:38:43 12/18/19 25 12/17/2024 CBC W/DIF F neutrophils 68.2 % 34.0-7 3.0 Not Available [facility] (Lab) [address] [facility], [place], [address], 12/20/2024 14:38:43 12/18/19 25 12/17/2024 CBC W/DIF F lymphocytes 23.7 % 15.0-5 0.0 Not Available [facility] (Lab) [address] [facility], [place], [address], 12/20/2024 14:38:43 12/18/19 25 12/17/2024 CBC W/DIF F monocytes 6.4 % 1.0-15 .0 Not Available [facility] (Lab) [address] [facility], [place], [address], 12/20/2024 14:38:43 12/18/19 25 12/17/2024 CBC W/DIF F eosinophils 0.8 % 0.0-8. 0 Not Available [facility] (Lab) [address] [facility], [place], [address], 12/20/2024 14:38:43 12/18/19 25 12/17/2024 CBC W/DIF F basophils 0.5 % 0.0-2. 0 Not Available [facility] (Lab) [address] [facility], [place], [address], 12/20/2024 14:38:43 12/18/19 25 12/17/2024 CBC W/DIF F immature granulocytes 0.4 % no define d refere nce range Immat ure Granu locyt es (IG) repre sents autom ated enume ratio n of Metam yeloc ytes, Myelo cytes and Promy elocy benito when IG is < 5%. Blast s are not inclu ded in IG and repor tabitha separ ately if prese nt. Not Available [facility] (Lab) [address] [facility], [place], [address], 12/20/2024 14:38:43 12/18/19 25 12/17/2024 CBC W/DIF F absolute neutrophils 5.8 10'3/ uL 1.5-8. 0 Not Available [facility] (Lab) [address] [facility], [place], [address], 12/20/2024 14:38:43 12/18/19 25 12/17/2024 CBC W/DIF F absolute lymphocytes 2.0 10'3/ uL 1.0-4. 0 Not Available [facility] (Lab) [address] [facility], [place], [address], 12/20/2024 14:38:43 12/18/19 25 12/17/2024 CBC W/DIF F absolute monocytes 0.5 10'3/ uL 0.2-1. 0 Not Available [facility] (Lab) [address] [facility], [place], [address], 12/20/2024 14:38:43 12/18/19 25 12/17/2024 CBC W/DIF F absolute eosinophils 0.1 10'3/ uL 0.0-0. 6 Not Available [facility] (Lab) [address] [facility], [place], [address], 12/20/2024 14:38:43 12/18/19 25 12/17/2024 CBC W/DIF F absolute basophils 0.0 10'3/ uL 0.0-0. 3 Not Available [facility] (Lab) [address] [facility], [place], [address], 12/20/2024 14:38:43 12/18/19 25 12/17/2024 CBC W/DIF F absolute immature granulocytes 0.0 10'3/ uL 0.00-0 .10 Refer ence range s for nonbi nary/ inter sex or unspe cifie d gende r patie nts have not been estab lishe d. Pleas e refer to the follo wing table for range s estab lishe d for cisge nder patie nts and evalu ate in the clini miya carlos xt of the indiv idual patie nt: https :[email or web address] augustine book. nm.or g/gen derx Not Available [facility] (Lab) [address] [facility], [place], [address], 12/20/2024 14:38:43 12/18/19 25 12/17/2024 TYPE/ RH/SC REEN ABO/Rh type O POS Not Available [facility] (Lab) [address] [facility], [place], [address], 12/20/2024 14:38:44 12/18/19 25 12/17/2024 TYPE/ RH/SC REEN antibody screen NEG Not Available [facility] (Lab) [address] [facility], [place], [address], 12/20/2024 14:38:44 12/18/19 25 12/17/2024 TYPE/ RH/SC REEN exp date 2024 23:59 Not Available [facility] (Lab) [address] [facility], [place], [address], 12/20/2024 14:38:44 12/18/19 25 12/17/2024 HIV 1/2 ANTIG EN/AN TIBOD Y, REFLE X CONFI RMATI ON HIV antigen/anti body Nonrea ctive nonrea ctive HIV-1 antig en and HIV-1 /HIV- 2 antib odies were not detec tabitha. No labor atory evide nce of HIV infec tion. Not Available [facility] (Lab) [address] [facility], [place], [address], 12/20/2024 14:38:44 12/18/19 25 12/17/2024 HEPAT ITIS B SURFA CE ANTIG EN hepatitis B surface antigen Non-re active non-re active This assay was perfo rmed using [employer] ratio n reage nts and test kits. Value s obtai adrianne with other assay metho ds or kits canno t be used inter limon eably . Not Available [facility] (Lab) [address] [facility], [place], [address], 12/20/2024 14:38:45 12/18/19 25 12/17/2024 HEPAT ITIS C ANTIB ZHENG SCREE N, REFLE X TO CONFI RMATI ON hepatitis C antibody Non-re active non-re active Antib odies to HCV Not Detec tabitha, does not exclu de the possi bilit y of expos ure to HCV. Not Available [facility] (Lab) [address], [place], [address], 12/20/2024 14:38:45 12/18/19 25 12/17/2024 RUBEL LA IGG ANTIB ZHENG, QUANT rubella antibodies, IgG Reacti ve reacti ve Not Available [facility] (Lab) [address], [place], [address], 12/20/2024 14:38:45 12/18/19 25 12/17/2024 RUBEL LA IGG ANTIB ZHENG, QUANT rubella antibodies, IgG quant 63.9 IU/mL >=10 Non-r eacti ve (Non- Immun e) <10 IU/mL React nelson (Immu ne) > or = 10 IU/mL Not Available [facility] (Lab) [address], [place], [address], 12/20/2024 14:38:45 12/18/19 25 12/17/2024 HEMOG LOBIN A1C hemoglobin A1C 5.3 % 4.0-5. 6 The Ameri can Diabe benito Assoc iatio n recom mends that a prima ry goal of thera py shoul d be a HBA1C of < 7% and that physi cians shoul d reeva luate the treat ment regim en in patie nts with HBA1C value s consi stent ly > 8%. <5.7% Tori l 5.7 - 6.4% Incre ased risk for diabe benito >=6.5 % Diagn ostic of diabe benito <7.0% Goal of thera py >8.0% Actio n sugge sted Not Available [facility] (Lab) [address], [place], [address], 12/20/2024 14:38:46 12/18/19 25 12/17/2024 RPR SCREE N, REFLE X TITER /CONF IRMAT ION RPR qualitative Nonrea ctive nonrea ctive Not Available [facility] (Lab) [address], [place], [address], 12/20/2024 14:38:46 12/18/19 25 12/17/2024 drug scree n, urine Amphetamines : negati ve Not Available [facility] [address], [place], [address], 12/17/2024 11:48:35 12/18/19 25 12/17/2024 drug scree n, urine Cannabinoids : negati ve Not Available [facility] [address], [place], [address], 12/17/2024 11:48:35 12/18/19 25 12/17/2024 drug scree n, urine Cocaine: negati ve Not Available [facility] [address], [place], [address], 12/17/2024 11:48:35 12/18/19 25 12/17/2024 drug scree n, urine Opiates: negati ve Not Available [facility] [address], [place], [address], 12/17/2024 11:48:35 12/18/19 25 12/17/2024 drug scree n, urine Phenocyclidi ne: negati ve Not Available [facility] [address], [place], [address], 12/17/2024 11:48:35 12/18/19 25 12/17/2024 drug scree n, urine Barbiturates : negati ve Not Available [facility] [address], [place], [address], 12/17/2024 11:48:35 12/18/19 25 12/17/2024 drug scree n, urine Benzodiazepi gee: negati ve Not Available [facility] [address], [place], [address], 12/17/2024 11:48:35 12/18/19 25 12/17/2024 drug scree n, urine Ethanol: negati ve Not Available [facility] [address], [place], [address], 12/17/2024 11:48:35 12/18/19 25 12/17/2024 drug scree n, urine Hallucinogen s: negati ve Not Available [facility] [address], [place], [address], 12/17/2024 11:48:35 12/18/19 25 12/17/2024 drug scree n, urine Inhalants: negati ve Not Available [facility] [address], [place], [address], 12/17/2024 11:48:35 12/18/19 25 12/17/2024 drug scree n, urine Anabolic Steroids: negati ve Not Available [facility] [address], [place], [address], 12/17/2024 11:48:35 12/18/1912/17/2024 US, obste tric, nucha l trans lucen cy No observ ation record ed. [facility] [address], [place], [address], 12/17/2024 13:01:43 12/18/1912/17/2024 US, obste tric, follo w-up No observ ation record ed. [email or web address] [facility] [address], [place], [address], 12/17/2024 12:09:38 12/30/1912/20/2024 robert r monit or No observ ation record ed. [facility] [address], [place], [address], 01/05/2025 21:40:55 12/30/1912/20/2024 robert r monit or No observ ation record ed. [facility] ([facility] [address], [place], [address], 01/05/2025 21:40:55 01/19/20 25 01/18/2025 US, obste tric, follo w-up No observ ation record ed. [email or web address] [facility] [address], [address], 01/27/2025 09:41:22 01/19/20 25 01/18/2025 US, obste tric, follo w-up No observ ation record ed. [email or web address] [facility] [address], [address], 01/28/2025 11:08:21 02/17/20 25 02/16/2025 US, obste tric, follo w-up No observ ation record ed. [email or web address] [facility] [address] [place] [address], [address], 02/18/2025 10:43:13 02/17/20 25 02/16/2025 US, obste tric, follo w-up No observ ation record ed. [email or web address] [facility] [address], [address], 02/17/2025 14:53:15 02/17/20 25 02/16/2025 US, obste tric No observ ation record ed. [email or web address] [facility] [address], [address], 02/17/2025 14:35:26 Result Notes None recorded. Problems Name Problem SNOMED Code Status Onset Date Resolution Date Notes Provider Name and Address Organization Details Recorded Time [id number] Active [place] - [facility] 17:07:59 Problem Notes None recorded. Procedures Surgical History Date Name Laterality Status Provider Name and Address Organization Details Recorded Time 11/12/19 23 Date of Last Pap Smear completed [facility] 11/15/2024 17:10:58 03/10/19 15 reconstruction of anterior cruciate ligament of knee joint completed [facility] 11/15/2024 17:15:10 Imaging Results None recorded. Procedure Notes None recorded. Medical Equipment None Reported. Allergies No known drug allergies Medications Name Sig Start Date Stop Date Status Note LastModified by Organization Details LastModified Time aspirin 81 mg tablet,delay ed release TAKE 1 TABLET BY MOUTH DAILY active Not Available Not Available Not Available ondansetron 8 mg disintegrati ng tablet Place 1 tablet twice a day by translingua l route as needed. 2024 active Not Available Not Available Not Avai lable active Not Available Not Avai lable Not Available Vitals Date Recorded Body height Body mass index (BMI) Body weight Systolic And Diastolic Provider Name and Address Organization Details Last Updated DateTime 01/18/2025 165.1 cm 26.6 kg/m2 20867.78 g 127/74 mm[Hg] [facility] 01/18/2025 12:20:11 Social History Question Answer Notes LastModified by Organizat ion Details LastModified Time Tobacco Smoking Status Never Smoker [facility] 11/15/2024 17:14:33 Do You Have An [...] Or The Highest Degree You Have Received? [id number] Information not available 11/15/2024 Are There Any Guns Present In Your Home? No Information not available 11/15/2024 Do You Use Protection During Sex? Usually Information not available 11/15/2024 Do You Use Your Seat Belt Or Car Seat Routinely? Yes Information not available 11/15/2024 Are You Sexually Active? Yes [email or web address] Information not available 12/17/2024 Do You Have [...] Have Difficulty Walking Or Climbing Stairs? No [email or web address] Information not available 12/17/2024 Sex: Unknown Functional [...] available 11/15/2024 Are you currently employed? Yes Information not available 12/17/2024 Are you able to walk independently without assistance or assistive devices? [email or web address] Information not available 11/15/2024 Are you able to care for yourself independently? 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 No Information not available 12/17/2024 What is your exercise level? Moderate Information not available 11/15/2024 Mental Status Question Answer Note LastModified by Organization D etails LastModified Time Do you feel stressed (tense, restless, nervous, or anxious, or unable to sleep at night)? [id number] Information not available 12/17/2024 Family History Relationship [...] ICD10 Code Diagnosis IMO Codes Diagnosis Note [id number] ATWNY GERONIMO MD [facility] [address] [address] 01/18/2025 11:47:43 01/18/2025 12:44:30 care status [id number] Z34.82 [id number] Health Concerns Section Related Observation LastModified by Organization Detai ls LastModified Time None Recorded Concern Status LastModified by Organization Details LastModified Time None Recorded Payers Encounter Date Sequence Insurance Name Policy Number Policy Gonzalez Covered Member ID Gonzalez Member ID Guarantor Name 01/18/2025 1 [employer] [id number] Varun Buzzard [id number] Varun Buzzard Notes Date Note Type Note Provider Name and Address Organization Details Recorded Time 01/18/2025 text/html Generic HPI TemplateReported by Patient TAWNY GERONIMO MD [address], [place], [address], [facility] 01/18/2025 12:38:33 OBGyn Episode Ob Episode Information Episode Created Date Number of Fetuses Patient Bloodtype Patient rh Status Prepregnancy Weight lbs Domestic Partner Domestic Partner Phone Father Name Bank Officer Status 12/17/19 25 1 O Positive 157 OPEN Fetus Data First Name Last Name Admitted to NICU Weight (g) Sex Living Outcome Pediatric Complications Fetus ID Race Codes Race Delivery Type [id number] Polo Calculation Initial Polo Date Initial Exam [...] Weight in lbs Pre/Post Dialysis Refused Weight 156.998959746151 BP Diastolic BP Location Tested BP Systolic BP Type 82 L arm 152 sitting 88 122 Fetus Heart Rate Present Fetus Movement A No Comments reviewed previous hx, has mfm referral, no complications with previous vaginal delivery, us reviewed, plan residential substance abuse counselor for complaints of skipped beats only at hs, precautions and education f/u 4 weeks Flowsheet Date 01/18/2025 Oleary Score Blood Edema Fundus Height Fundus Units Glucose Ketones Leukocytes Nitrite Labor Signs Protein Cervic Dilation Cervic Effacement Cervic Station Type Weight in lbs Pre/Post Dialysis Refused Weight 160.381370427179 BP Diastolic BP Location Tested BP Systolic BP Type 74 L arm 127 sitting Fetus Heart Rate Present A 155 Fetus Movement A No Comments Doing well, nausea improved. No movement yet. Saw MFM today and was referred to cardiology due to hx of SVT/Afib in last . Symptoms minimal since returning Holter monitor. Anatomy US scheduled with [facility]. RTC 4 weeks. Flowsheet Date 02/25/2025 Oleary Score Blood Edema Fundus Height Fundus Units Glucose Ketones Leukocytes Nitrite Labor Signs Protein Cervic Dilation Cervic Effacement Cervic Station Type Weight in lbs Pre/Post Dialysis Refused Weight 170.507180137332 BP Diastolic BP Location Tested BP Systolic BP Type 84 L arm 135 sitting Fetus Heart Rate Present A 155 Fetus Movement A Yes Comments Good movement. No cram ping or bleeding. Anatomy complete and normal at [facility]. Holter monitor overall reassuring, cardiology appointment next week. Still asymptomatic. Discussed GCT and labs for next visit. RTC 4 weeks. Menstrual History Last Menstrual Date Menses Monthly [...]
--- OUTSIDE RECORDS SUMMARY | 2025-02-28 10:24 | XMS_ITS | Continuity of Care Document ---
Author Organization [facility] Address [address] [place] [address] [place] [address] Assessment No assessment recorded. Plan of Treatment Reminders Order Date Submit Date Provider Last Modified By Organization Details Last Modified Time Details Appointments OB ROUTINE 2025 11:15A Dereck GERONIMO MD Not available Not available Not available Lab drug screen, urine [email or web address] [facility] [address], [address], [place], [address], 12/17/2024 11:51:29 Referral None recorded . Procedures None recorded . Surgeries None recorded . Imaging None recorded . Medication Orders Adult Low Dose Aspirin 81 mg tablet,d elayed release 2024 025 [id number], [address], [place], [place], [id number], 12/17/2024 11:58:12 Patient TargetsNo targets recorded. Patient [...] t Abnor mal: No Resul ting Lab: [facility] [address] [facility] [address] Tel: CULTU RE ----- ----- ----- --- Cultu re resul t (>=3 organ isms prese nt) indic ates possi ble conta minat ion. Repea t cultu re if sympt oms indic ate. Not Available [facility] (Lab) [address], [place], [address], 12/19/2024 14:02:05 12/18/1912/17/2024 CBC W/DIF F WBC 8.5 10'3/ uL 3.5-10 .5 Not Available [facility] (Lab) [address], [place], [address], 12/20/2024 14:38:43 12/18/19 25 12/17/2024 CBC W/DIF F RBC 4.70 10'6/ uL (based on docume nted legal sex) 3.80-5 .20 Not Available [facility] (Lab) [address], [place], [address], 12/20/2024 14:38:43 12/18/19 25 12/17/2024 CBC W/DIF F HGB 13.4 g/dL (based on docume nted legal sex) 11.6-1 5.4 Not Available [facility] (Lab) [address], [place], [address], 12/20/2024 14:38:43 12/18/19 25 12/17/2024 CBC W/DIF F HCT 40.7 % (based on docume nted legal sex) 34.0-4 5.0 Not Available [facility] (Lab) [address] [place], [address], 12/20/2024 14:38:43 12/18/19 25 12/17/2024 CBC W/DIF F MCV 86.6 fL 80.0-9 9.0 Not Available [facility] (Lab) [address], [place], [address], 12/20/2024 14:38:43 12/18/19 25 12/17/2024 CBC W/DIF F MCH 28.5 pg 27.0-3 4.0 Not Available [facility] (Lab) [address], [place], [address], 12/20/2024 14:38:43 12/18/19 25 12/17/2024 CBC W/DIF F MCHC 32.9 g/dL 32.0-3 5.5 Not Available [facility] (Lab) [address], [place], [address], 12/20/2024 14:38:43 12/18/19 25 12/17/2024 CBC W/DIF F RDW 13.2 % 11.0-1 5.0 Not Available [facility] (Lab) [address], [place], [address], 12/20/2024 14:38:43 12/18/19 25 12/17/2024 CBC W/DIF F plt 307 10'3/ uL 150-40 0 Not Available [facility] (Lab) [address], [place], [address], 12/20/2024 14:38:43 12/18/19 25 12/17/2024 CBC W/DIF F MPV 9.8 fL 8.8-12 .1 Not Available [facility] (Lab) [address], [place], [address], 12/20/2024 14:38:43 12/18/19 25 12/17/2024 CBC W/DIF F NRBC's 0.0 % 0.0 Not Available [facility] (Lab) [address], [place], [address], 12/20/2024 14:38:43 12/18/19 25 12/17/2024 CBC W/DIF F absolute NRBCs 0.0 10'3/ uL no refere nce range establ ished Not Available [facility] (Lab) [address], [place], [address], 12/20/2024 14:38:43 12/18/19 25 12/17/2024 CBC W/DIF F neutrophils 68.2 % 34.0-7 3.0 Not Available [facility] (Lab) [address], [place], [address], 12/20/2024 14:38:43 12/18/19 25 12/17/2024 CBC W/DIF F lymphocytes 23.7 % 15.0-5 0.0 Not Available [facility] (Lab) [address], [place], [address], 12/20/2024 14:38:43 12/18/19 25 12/17/2024 CBC W/DIF F monocytes 6.4 % 1.0-15 .0 Not Available [facility] (Lab) [address], [place], [address], 12/20/2024 14:38:43 12/18/19 25 12/17/2024 CBC W/DIF F eosinophils 0.8 % 0.0-8. 0 Not Available [facility] (Lab) [address], [place], [address], 12/20/2024 14:38:43 12/18/19 25 12/17/2024 CBC W/DIF F basophils 0.5 % 0.0-2. 0 Not Available [facility] (Lab) [address], [place], [address], 12/20/2024 14:38:43 12/18/19 25 12/17/2024 CBC W/DIF [...] separ ately if prese nt. Not Available [facility] (Lab) [address], [place], [address], 12/20/2024 14:38:43 12/18/19 25 12/17/2024 CBC W/DIF F absolute neutrophils 5.8 10'3/ uL 1.5-8. 0 Not Available [facility] (Lab) [address], [place], [address], 12/20/2024 14:38:43 12/18/19 25 12/17/2024 CBC W/DIF F absolute lymphocytes 2.0 10'3/ uL 1.0-4. 0 Not Available [facility] (Lab) [address], [place], [address], 12/20/2024 14:38:43 12/18/19 25 12/17/2024 CBC W/DIF F absolute monocytes 0.5 10'3/ uL 0.2-1. 0 Not Available [facility] (Lab) [address], [place], [address], 12/20/2024 14:38:43 12/18/19 25 12/17/2024 CBC W/DIF F absolute eosinophils 0.1 10'3/ uL 0.0-0. 6 Not Available [facility] (Lab) [address], [place], [address], 12/20/2024 14:38:43 12/18/19 25 12/17/2024 CBC W/DIF F absolute basophils 0.0 10'3/ uL 0.0-0. 3 Not Available [facility] (Lab) [address], [place], [address], 12/20/2024 14:38:43 12/18/19 25 12/17/2024 CBC W/DIF F absolute immature granulocytes 0.0 10'3/ uL 0.00-0 .10 Refer ence range s for nonbi nary/ inter sex or unspe cifie d gende r patie nts have not been estab lishe d. Eli e refer to the follo wing table for range s estab lishe d for cisge nder patie nts and evalu ate in the clini miya carlos xt of the indiv idual roger nt: https :[email or web address] augustine book. nm.or g/gen derx Not Available [facility] (Lab) [address], [place], [address], 12/20/2024 14:38:43 12/18/19 25 12/17/2024 TYPE/ RH/SC REEN ABO/Rh type O POS Not Available [facility] (Lab) [address], [place], [address], 12/20/2024 14:38:44 12/18/19 25 12/17/2024 TYPE/ RH/SC REEN antibody screen NEG Not Available [facility] (Lab) [address], [place], [address], 12/20/2024 14:38:44 12/18/19 25 12/17/2024 TYPE/ RH/SC REEN exp date 2024 23:59 Not Available [facility] (Lab) [address], [place], [address], 12/20/2024 14:38:44 12/18/19 25 12/17/2024 HIV 1/2 ANTIG EN/AN TIBOD Y, REFLE X CONFI RMATI ON HIV antigen/anti body Nonrea ctive nonrea ctive HIV-1 antig en and HIV-1 /HIV- 2 antib odies were not detec tabitha. No labor atory evide nce of HIV infec tion. Not Available [facility] (Lab) [address], [place], [address], 12/20/2024 14:38:44 12/18/19 25 12/17/2024 HEPAT ITIS B SURFA CE ANTIG EN hepatitis B surface antigen Non-re active non-re active This assay was perfo rmed using [employer] ratio n reage nts and test kits. Value s obtai adrianne with other assay metho ds or kits canno t be used inter limon eably . Not Available [facility] (Lab) [address], [place], [address], 12/20/2024 14:38:45 12/18/19 25 12/17/2024 HEPAT ITIS C ANTIB ZHENG SCREE N, REFLE X TO CONFI RMATI ON hepatitis C antibody Non-re active non-re active Antib odies to HCV Not Detec tabitha, does not exclu de the possi bilit y of expos ure to HCV. Not Available [facility] (Lab) [address], [place], [address], 12/20/2024 14:38:45 12/18/19 25 12/17/2024 RUBEL LA IGG ANTIB ZHENG, QUANT rubella antibodies, IgG Reacti ve reacti ve Not Available [facility] (Lab) [address], [place], [address], 12/20/2024 14:38:45 12/18/19 25 12/17/2024 RUBEL LA IGG ANTIB ZHENG, QUANT rubella antibodies, IgG quant 63.9 IU/mL >=10 Non-r eacti ve (Non- Immun e) <10 IU/mL React nelson (Immu ne) > or = 10 IU/mL Not Available [facility] (Lab) [address] [place], [address], 12/20/2024 14:38:45 12/18/19 25 12/17/2024 HEMOG LOBIN [...] >8.0% Actio n sugge sted Not Available [facility] (Lab) [address], [place], [address], 12/20/2024 14:38:46 12/18/19 25 12/17/2024 RPR SCREE N, REFLE X TITER /CONF IRMAT ION RPR qualitative Nonrea ctive nonrea ctive Not Available [facility] (Lab) [address], [place], [address], 12/20/2024 14:38:46 12/18/19 25 12/17/2024 drug scree n, urine Amphetamines : negati ve Not Available [place] [address], [place], [address], 12/17/2024 11:48:35 12/18/19 25 12/17/2024 drug scree n, urine Cannabinoids : negati ve Not Available [place] [address], [place], [address], 12/17/2024 11:48:35 12/18/19 25 12/17/2024 drug scree n, urine Cocaine: negati ve Not Available [place] [address], [place], [address], 12/17/2024 11:48:35 12/18/19 25 12/17/2024 drug scree n, urine Opiates: negati ve Not Available [place] [address], [place], [address], 12/17/2024 11:48:35 12/18/19 25 12/17/2024 drug scree n, urine Phenocyclidi ne: negati ve Not Available [place] [address], [place], [address], 12/17/2024 11:48:35 12/18/19 25 12/17/2024 drug scree n, urine Barbiturates : negati ve Not Available [place] [address], [place], [address], 12/17/2024 11:48:35 12/18/19 25 12/17/2024 drug scree n, urine Benzodiazepi gee: negati ve Not Available [place] [address], [place], [address], 12/17/2024 11:48:35 12/18/19 25 12/17/2024 drug scree n, urine Ethanol: negati ve Not Available [place] [address], [place], [address], 12/17/2024 11:48:35 12/18/19 25 12/17/2024 drug scree n, urine Hallucinogen s: negati ve Not Available [place] [address], [place], [address], 12/17/2024 11:48:35 12/18/1912/17/2024 drug scree n, urine Inhalants: negati ve Not Available [place] [address], [place], [address], 12/17/2024 11:48:35 12/18/19 25 12/17/2024 drug scree n, urine Anabolic Steroids: negati ve Not Available [place] [address], [place], [address], 12/17/2024 11:48:35 12/18/1912/17/2024 US, obste tric, nucha l trans lucen cy No observ ation record ed. [facility] [address], [place], [address], 12/17/2024 13:01:43 12/18/1912/17/2024 US, obste tric, follo w-up No observ ation record ed. [email or web address] [address], [place], [address], 12/17/2024 12:09:38 12/30/1912/20/2024 robert r monit or No observ ation record ed. [address] [facility], [place], [address], 01/05/2025 21:40:55 12/30/1912/20/2024 robert r monit or No observ ation record ed. [facility] (Cardiology & Em[facility]) [facility] [address], [place], [address], 01/05/2025 21:40:55 01/19/2001/18/2025 US, obste tric, follo w-up No observ ation record ed. [email or web address] [facility] [address] [place] [address], [address], 01/27/2025 09:41:22 01/19/2001/18/2025 US, obste tric, follo w-up No observ ation record ed. [facility] [address] [place] [address], [address], 01/28/2025 11:08:21 02/17/20 25 02/16/2025 US, obste tric, follo w-up No observ ation record ed. [email or web address] [facility] [address] [place] [address], [address], 02/18/2025 10:43:13 02/17/20 25 02/16/2025 US, obste tric, follo w-up No observ ation record ed. [email or web address] [facility] [address] [place] [address], [address], 02/17/2025 14:53:15 02/17/20 25 02/16/2025 US, obste tric No observ ation record ed. [email or web address] [facility] [address] [place], [address], 02/17/2025 14:35:26 Result Notes None recorded. Problems Name Problem SNOMED Code Status Onset Date Resolution Date Notes Provider Name and Address Organization Details Recorded Time [id number] Active 025 Leslie el [facility] 17:07:59 Problem Notes None recorded. Procedures Surgical History Date Name Laterality Status Provider Name and Address Organization Details Recorded Time 11/12/19 23 Date of Last Pap Smear completed [facility] 11/15/2024 17:10:58 03/10/19 15 reconstruction of anterior cruciate ligament of knee joint completed [facility] 11/15/2024 17:15:10 Imaging Results None recorded. [...] Avai lable Not Available Vitals Date Recorded Systolic And Diastolic Provider Name and Address Organization Details Last Updated DateTime 12/17/2024 122/88 mm[Hg] Janay Amaya CNM [address], [place], [address], [facility] 12/17/2024 12:02:13 Date Recorded Body height Body mass index (BMI) Body weight Systolic And Diastolic Provider Name and Address Organization Details Last Updated DateTime 12/17/2024 165.1 cm 26 kg/m2 64412.41 g 152/82 mm[Hg] Leslie Medina [facility] 12/17/2024 11:38:56 Social History Question Answer Notes LastModified by Organizat ion Details LastModified Time Tobacco Smoking Status Never Smoker Eryn Oden [facility], [facility] 11/15/2024 17:14:33 Do You Have An [...] Or The Highest Degree You Have Received? [id number] Information not available 11/15/2024 Are There Any Guns Present In Your Home? No Information not available 11/15/2024 Do You Use Protection During Sex? Usually Information not available 11/15/2024 Do You Use Your Seat Belt Or Car Seat Routinely? Yes Information not available 11/15/2024 Are You Sexually Active? Yes [email or web address] Information not available 12/17/2024 Do You Have [...] Have Difficulty Walking Or Climbing Stairs? No [email or web address] Information not available 12/17/2024 Sex: Unknown Functional [...] available 11/15/2024 Are you currently employed? Yes [email or web address] Information not available 12/17/2024 Are you able to walk independently without assistance or assistive devices? [email or web address] Information not available 11/15/2024 Are you able to care for yourself independently? 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 No [email or web address] Information not available 12/17/2024 What is your exercise level? Moderate Information not available 11/15/2024 Mental Status Question Answer Note LastModified by Organization D etails LastModified Time Do you feel stressed (tense, restless, nervous, or anxious, or unable to sleep at night)? [id number] [email or web address] Information not available 12/17/2024 Family History Relationship Description Onset Age of this Age Resolved Age Notes LastModified by Organization Details LastModified Time Paternal Grandfather Heart disease Not available 2024 17:09:13 Father Heart disease Not available 2024 17:09:13 Medical History Condition Response Other N Blood Transfusion N Dermatologic Disorders N Gestational Diabetes N Anxiety Disorder N Autoimmune disease N Arthritis N Polyps N Infertility N Acid Reflux (GERD) N Cancer N Varicosities N Stroke N Neurologic/Epilepsy N Fibromyalgia N Headaches N Kidney Disease N Heart Problems Y Kidney or Bladder Problems N Eating Disorder N Art (IVF or FET) N Hepatitis/Liver Disease N No Past Medical History N Urinary Tract Infection N Asthma N Trauma/Violence N Thrombophilias N Allergies (Food, seasonal, environmental ) N Breast Cancer N Drug/Latex Allergies/Reactions N Lung Disease N Defects or Inherited Disease N Breast Problem N Hematologic disorders N Anesthesia Complications N History of STI N Deep Vein Thrombosis N Polycystic ovary syndrome N History of abnormal pap N Endometriosis N High Cholesterol N Thyroid Problems N GI Problems N Anemia N Psychiatric Illness N Ovarian Cancer N Diabetes N Pulmonary (TB, Asthma) N Eczema N Abuse/Domestic Violence N Depression/ depression N Heart Disease N Pre-Eclampsia N Hypertension N Osteoporosis N Gynecological History Statement/Question Response Flow Moderate [...] ICD10 Code Diagnosis IMO Codes Diagnosis Note [id number] [facility] [address] [address] 12/17/2024 10:55:00 12/17/2024 12:16:20 care status 643778511 Z34.91 [id number] Supraventr icular tachycardia 4103839 I47.10 [id number] Aniceto Mcdonald MD [place] [address] [address] 12/17/2024 10:56:39 12/17/2024 11:28:31 screening 642573845 Z36.82 Z3A.13 [id number] Health Concerns Section Related Observation LastModified by Organization Detai ls LastModified Time None Recorded Concern Status LastModified by Organization Details LastModified Time None Recorded Payers Encounter Date Sequence Insurance Name Policy Number Policy Gonzalez Covered Member ID Gonzalez Member ID Guarantor Name 12/17/2024 1 [employer] (PPO) [id number] Varun Schmitz [id number] Varun Schmitz OBGyn Episode Ob Episode Information Episode Created Date Number of Fetuses Patient Bloodtype Patient rh Status Prepregnancy Weight lbs Domestic Partner Domestic Partner Phone Father Name Mirror Specialist Status 12/17/19 25 1 O Positive 157 OPEN Fetus Data First Name Last Name Admitted to NICU Weight (g) Sex Living Outcome Pediatric Complications Fetus ID Race Codes Race Delivery Type [id number] Polo Calculation Initial Polo Date Initial Exam [...] Gestation 12/18/19 25 0 06/25/19 26 0 Pre-samantha Flowsheet Flowsheet Date 12/17/2024 Oleary Score Blood [...] Weight in lbs Pre/Post Dialysis Refused Weight 156.092130929333 BP Diastolic BP Location Tested BP Systolic BP Type 82 L arm 152 sitting 88 122 Fetus Heart Rate Present Fetus Movement A No Comments reviewed previous hx, has mfm referral, no complications with previous vaginal delivery, us reviewed, plan child monitor for complaints of skipped beats only at hs, precautions and education f/u 4 weeks Flowsheet Date 01/18/2025 Oleary Score Blood Edema Fundus Height Fundus Units Glucose Ketones Leukocytes Nitrite Labor Signs Protein Cervic Dilation Cervic Effacement Cervic Station Type Weight in lbs Pre/Post Dialysis Refused Weight 160.795375975896 BP Diastolic BP Location Tested BP Systolic BP Type 74 L arm 127 sitting Fetus Heart Rate Present A 155 Fetus Movement A No Comments Doing well, nausea improved. No movement yet. Saw MFM today and was referred to cardiology due to hx of SVT/Afib in last . Symptoms minimal since returning Holter monitor. Anatomy US scheduled with [facility]. RTC 4 weeks. Flowsheet Date 02/25/2025 Oleary Score Blood Edema Fundus Height Fundus Units Glucose Ketones Leukocytes Nitrite Labor Signs Protein Cervic Dilation Cervic Effacement Cervic Station Type Weight in lbs Pre/Post Dialysis Refused Weight 170.577191183333 BP Diastolic BP Location Tested BP Systolic BP Type 84 L arm 135 sitting Fetus Heart Rate Present A 155 Fetus Movement A Yes Comments Good movement. No cram ping or bleeding. Anatomy complete and normal at [facility]. Holter monitor overall reassuring, cardiology appointment next [...]
--- OUTSIDE RECORDS SUMMARY | 2025-02-28 10:24 | XMS_ITS | Clinical Summary ---
Author Organization [facility] [employer] Address [address] 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 This disclosure is being madepursuant to the Care Everywhere program and may not contain all information available regarding this patient. Last updated 17.[facility] [employer] Allergies No known active allergies Medications * Be aware that medications may not be up to date on this document. Alwaysverify current medications with the patient. Vit-Fe Fumarate-FA ( vitamin) 28-0.8 MG tablet Take 1 (one) tablet by mouth once daily Active pyridoxine (Vitamin B-6) 25 MG tablet Take 2 (two) tablets by mouth once daily Active aspirin (Aspirin) 81 MG chew tablet Take 1 (one) tablet by mouth once daily (chew and swallow) Active ondansetron (Zofran) 4 MG tablet Take 1 (one) tablet by mouth every 6 hours as needed for nausea/vomit ing Active Active Problems Problem Noted Date Diagnosed Date complicated by cardiac condition, ante 02/16/2025 Short interval between pregn ancies affecting , antepartum 02/16/2025 Family history of malignant hyperthermia 024 Overview (08/23/2023): paternal grandfather Permanent atrial fibrillation 08/22/2023 A-fib 03/19/2023 Estimated Date of Delivery Comme nts Yes 07/02/2025 Based on Ultraso und Resolved Problems Problem Noted Date Diagnosed Date Resolved Date Uterine contractions 07/22/2023 025 Encounters Date Type Department Care Team Description 02/16/2025 12:48 PM JALOUSIE INSTALLER - 02/16/2025 11:59 PM JALOUSIE INSTALLER Hospital Encounter [facility] [address] [place] [phone] Fanta Kenyon MD Discharge Disposition: Home or Self Care 02/16/2025 12:48 PM JALOUSIE INSTALLER - 02/16/2025 11:59 PM JALOUSIE INSTALLER Hospital Encounter [facility] [address] [place] [phone] Fanta Kenyon MD Discharge Disposition: Home or Self Care 01/18/2025 8:45 AM JALOUSIE INSTALLER - 01/18/2025 11:59 PM JALOUSIE INSTALLER Hospital Encounter [facility] [address] [place] [phone] Ishmael Conklin MD Discharge Disposition: Home or Self Care 01/18/2025 8:45 AM JALOUSIE INSTALLER - 01/18/2025 11:59 PM JALOUSIE INSTALLER Hospital Encounter [facility] [address] [place] [phone] Ishmael Conklin MD Discharge Disposition: Home or Self Care 12/13/2024 Travel from Last 3 Months Immunizations Immunization Administration Dates Next Due MMR 08/24/2023(Deferred: - rubella immune) TDAP (7yrs+) 08/25/2023 Family History Medical History [...] Recorded Patient Health Questionnaire-2 Score 1 07/27/2023 [facility] [place] [facility] - Occupational Stress [...] place to sleep or slept in a long-term (including now)? No 08/22/2023 Tea Depression Scale Answer Date Recorded Tea Depression Scale Total 4 08/24/2023 The thought of harming myself has occurred to me . Never 08/24/2023 Education Answer Date Recorded What is the highest level of school you have completed or the highest degree you have received? 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 Not on file Not on coleen e Last Filed Vital Signs Vital Sign Reading Time Taken Comments Blood Pressure 114/70 02/16/2025 1:44 PM JALOUSIE INSTALLER Pulse 95 02/16/2025 1:44 PM JALOUSIE INSTALLER Temperature 36.6 C (97.9 F) 08/25/2023 8:10 AM CDT Respiratory Rate 16 08/25/2023 8:10 AM CDT Oxygen Saturation 99% 08/25/2023 8:10 AM CDT Inhaled Oxygen Concentration - - Weight 74.8 kg (165 lb) 02/16/2025 1:44 PM JALOUSIE INSTALLER Height 165.1 cm (5' 5) 02/16/2025 1:44 PM JALOUSIE INSTALLER Body Mass Index 27.46 02/16/2025 1:44 PM JALOUSIE INSTALLER Plan of Treatment Upcoming Encounters Date Type Department Care Team (Late st Contact Info) Description 03/28/2025 9:00 AM JALOUSIE INSTALLER Appointment [facility] [address] [place] [phone] Health Maintenance Due Date Last Done Comments HPV VACCINE (1 - 3-dose series) 06/19/2014 HEPATITIS B VACCINE (1 of 3 - 19+ 3-dose series) 06/19/2018 DEPRESSION SCREENING 03/10/2024 06/23/2023 COVID-19 VACCINE (1 - 2024-2 6 season) 2024 INFLUENZA VACCINE (#1) 2024 12/29/2023 OB-ONE HOUR GLUCOSE 03/26/2025 OB-TDAP CURRENT 04/02/2025 08/25/2023 CHLAMYDIA/GONORRHEA SCREENING 11/15/2025 11/15/2024 PAP SMEAR 10/07/2026 10/08/2023 DTAP/TDAP/TD VACCINES (2 - T d or Tdap) 08/24/2033 08/25/2023 ZOSTER VACCINE (1 of 2) 06/19/2049 HEPATITIS C SCREENING Completed 02/20/2023 HIV SCREENING Completed 12/17/2024 HIB VACCINE Aged Out No longer eligi [...] on patient's age to complete this topic Respiratory Syncytial Virus (RSV) Vaccine Pt: or over 60 yrs (No Doses Required) Completed Procedures Procedure Name Priority Date/Time Associated Diagnosis Comments SONOGRAM - COMPLETE Routine 02/16/2025 1 2:50 PM JALOUSIE INSTALLER History of atrial fibrillation 20 weeks gestation of (HCC) Encounter for anatomic survey (HCC) SONOGRAM - COMPLETE Routine 01/18/2025 8 :51 AM JALOUSIE INSTALLER History of atrial fibrillation Encounter for ultrasound (HCC) 16 weeks gestation of (HCC) from Last 3 Months Results * Sonogram - Complete (02/16/2025 12:50 PM JALOUSIE INSTALLER) Only the most recent of2 resultswithin the time period is included. Linked Results Indication ======== anatomy evaluation Maternal history of other cardiac disease complicating SVT, A-Fib with RVR History ====== OB History 2. Para 1 [id number] 1. live 08/23/2023. Gest. age 39 w + 2 d. Weight 2,807 g. Sex of child: male. Details: Lab Tests Test Date Result NIPT Declined Maternal Assessment Physical Exam Height 165 cm, 5 ft 5 in. Weight 75 kg, 165 lb. Initial weight 71 kg, 157 lb. BMI 27.46 kg/m . Initial BMI 26.13 kg/m . Weight gain 4 kg, 8 lb Method ====== Transabdominal and transvaginal ultrasound. View: Good view ========= Prakash . Number of fetuses: 1 Dating ====== Date Details Gest. age JOE Stated JOE 20 w + 4 d 07/02/2025 Previous U/S 11/15/2024 GA, GA 7 w + 2 d 20 w + 4 d 07/02/2025 U/S 02/16/2025 based upon AC, BPD, Femur, HC 21 w + 1 d 06/28/2025 Assigned dating based on ultrasound (GA), selected on 02/16/2025 20 w + 4 d 07/02/2025 General Evaluation Cardiac activity present. FHR 156 bpm. Presentation: cephalic Placenta: Placental site: posterior. No previa seen Umbilical cord: Cord vessels: 3 vessel cord. Insertion site: normal insertion Amniotic fluid: Amount of AF: normal. MVP 3.7 cm Biometry BPD 51.1 mm 21w 3d 83% Hadlock HC 184.9 mm 20w 6d 54% Hadlock Cerebellum tr 22.5 mm 91% [place] Nuchal fold 3.7 mm AC 157.5 mm 20w 6d 55% Hadlock Femur 36.2 mm 21w 3d 73% Hadlock Humerus 33.1 mm 21w 1d 72% Otis HC / AC 1.17 19w 3d 58% Hadlock Weight Calculation: EFW 402 g 74% Hadlock EFW (lb,oz) 0 lb 14 oz EFW by Hadlock ([id number]) appropriate Growth Overview Exam date GA BPD (mm) HC (mm) AC (mm) FL (mm) HL (mm) EFW (g) 01/18/2025 16w 3d 37.5 89% 134.1 65% 114.5 77% 23.2 67% 21.6 61% 181 82% 02/16/2025 20w 4d 51.1 83% 184.9 54% 157.5 55% 36.2 73% 33.1 72% 402 74% Anatomy The following structures appear normal: Head / Neck Cranium. Lateral ventricles. Choroid plexus. Midline falx. Cavum septi pellucidi. Cerebellum. Cisterna magna. Thalami. Nuchal fold. Face Lips. Profile. Nose. Nasal bone. Orbits. Heart / Thorax 4-chamber view. RVOT view. LVOT view. 3-vessel view. 0-jzcllb-ngmnwka view. Situs. Aortic arch view. Bicaval view. Ductal arch view. Interventricular septum. Great vessels. Right lung. Left lung. Diaphragm. Abdomen Cord insertion. Stomach. Kidneys. Bladder. Bowel. Genitals. Spine Cervical spine. Thoracic spine. Lumbar spine. Sacral spine. Extremities / Skeleton Arms. Hands. Legs. Feet. Maternal Structures Cervix reassuring Approach - Transvaginal: Cervical length 4.60 cm Right Ovary Not visualized Appearance: Adnexa appears normal Left Ovary Not visualized Appearance: Adnexa appears normal No vasa previa Impression ========= Single live intrauterine at 20w 4d The size is appropriate. The amniotic fluid volume is normal. The transvaginal cervical length is reassuring. Posterior placenta, no evidence of previa or vasa previa. No major malformations were seen within the limitations of ultrasound. Follow-up ======== Follow up in 4 weeks for growth US and MFM Costuming Supervisor follow up. See separate MFM visit note. Coding ====== Diagnoses Z36.3: Encounter for screening for malformations O99.412, I51.9: Diseases of the circulatory system complicating , Maternal Cardiac Disease Procedures 27504: US Preg Uterus Detailed 77471: US Preg Uterus Transvaginal [facility] Notable Limited PACS Anatomical Region Laterality Modality Other 02/16/2025 12:5 0 PM JALOUSIE INSTALLER R Mateo Mcdonald MD [facility] ORDERABLES Edited Result - Final from Last 3 Months Insurance ANTHEM Advance Directives * Full Code (Latest Code Status on File) Date Activated Date Inactivated Comments 08/22/2023 8:32 PM 08/25/2023 1:03 PM Care Teams Licensed Aircraft Maintenance Engineer Relationship Specialty Start Date End Date Scooby Chavez MD [address] [place] [address] PCP - General Internal Medicine 06/23/23
--- OUTSIDE RECORDS SUMMARY | 2025-02-28 10:24 | XMS_ITS | Continuity of Care Document ---
Author Organization [facility] Address [address] [place] [address] Assessment No assessment recorded. Plan of Treatment [...] Resul ting Lab: [facility] [address] [facility] [address] Tel: [phone] CULTU RE ----- ----- ----- --- Cultu re resul t (>=3 organ isms prese nt) indic ates possi ble conta minat ion. Repea t cultu re if sympt oms indic ate. Not Available [facility] (Lab) [address] [facility], [place], [address], 12/19/2024 14:02:05 12/18/19 25 12/17/2024 CBC W/DIF F WBC 8.5 10'3/ uL 3.5-10 .5 Not Available [facility] (Lab) [address] [facility], [place], [address], 12/20/2024 14:38:43 12/18/19 25 12/17/2024 CBC W/DIF F RBC 4.70 10'6/ uL (based on docume nted legal sex) 3.80-5 .20 Not Available [facility] (Lab) [address] [facility], [place], [address], 12/20/2024 14:38:43 12/18/19 25 12/17/2024 CBC W/DIF F HGB 13.4 g/dL (based on docume nted legal sex) 11.6-1 5.4 Not Available [facility] (Lab) [address] [facility], [place], [address], 12/20/2024 14:38:43 12/18/19 25 12/17/2024 CBC W/DIF F HCT 40.7 % (based on docume nted legal sex) 34.0-4 5.0 Not Available [facility] (Lab) [address] [facility], [place], [address], 12/20/2024 14:38:43 12/18/19 25 12/17/2024 CBC W/DIF F MCV 86.6 fL 80.0-9 9.0 Not Available [facility] (Lab) [address] [facility], [place], [address], 12/20/2024 14:38:43 12/18/19 25 12/17/2024 CBC W/DIF F MCH 28.5 pg 27.0-3 4.0 Not Available [facility] (Lab) [address] [facility], [place], [address], 12/20/2024 14:38:43 12/18/19 25 12/17/2024 CBC W/DIF F MCHC 32.9 g/dL 32.0-3 5.5 Not Available [facility] (Lab) [address] [facility], [place], [address], 12/20/2024 14:38:43 12/18/19 25 12/17/2024 CBC W/DIF F RDW 13.2 % 11.0-1 5.0 Not Available [facility] (Lab) [address] [facility], [place], [address], 12/20/2024 14:38:43 12/18/19 25 12/17/2024 CBC W/DIF F plt 307 10'3/ uL 150-40 0 Not Available [facility] (Lab) [address] [facility], [place], [address], 12/20/2024 14:38:43 12/18/19 25 12/17/2024 CBC W/DIF F MPV 9.8 fL 8.8-12 .1 Not Available [facility] (Lab) [address] [facility], [place], [address], 12/20/2024 14:38:43 12/18/19 25 12/17/2024 CBC W/DIF F NRBC's 0.0 % 0.0 Not Available [facility] (Lab) [address] [facility], [place], [address], 12/20/2024 14:38:43 12/18/19 25 12/17/2024 CBC W/DIF F absolute NRBCs 0.0 10'3/ uL no refere nce range establ ished Not Available [facility] (Lab) [address] [facility], [place], [address], 12/20/2024 14:38:43 12/18/19 25 12/17/2024 CBC W/DIF F neutrophils 68.2 % 34.0-7 3.0 Not Available [facility] (Lab) [address] [facility], [place], [address], 12/20/2024 14:38:43 12/18/19 25 12/17/2024 CBC W/DIF F lymphocytes 23.7 % 15.0-5 0.0 Not Available [facility] (Lab) [address] [facility], [place], [address], 12/20/2024 14:38:43 12/18/19 25 12/17/2024 CBC W/DIF F monocytes 6.4 % 1.0-15 .0 Not Available [facility] (Lab) [address] [facility], [place], [address], 12/20/2024 14:38:43 12/18/19 25 12/17/2024 CBC W/DIF F eosinophils 0.8 % 0.0-8. 0 Not Available [facility] (Lab) [address] [facility], [place], [address], 12/20/2024 14:38:43 12/18/19 25 12/17/2024 CBC W/DIF F basophils 0.5 % 0.0-2. 0 Not Available [facility] (Lab) [address] [facility], [place], [address], 12/20/2024 14:38:43 12/18/19 25 12/17/2024 CBC W/DIF [...] separ ately if prese nt. Not Available [facility] (Lab) [address] [facility], [place], [address], 12/20/2024 14:38:43 12/18/19 25 12/17/2024 CBC W/DIF F absolute neutrophils 5.8 10'3/ uL 1.5-8. 0 Not Available [facility] (Lab) [address] [facility], [place], [address], 12/20/2024 14:38:43 12/18/19 25 12/17/2024 CBC W/DIF F absolute lymphocytes 2.0 10'3/ uL 1.0-4. 0 Not Available [facility] (Lab) [address] [facility], [place], [address], 12/20/2024 14:38:43 12/18/19 25 12/17/2024 CBC W/DIF F absolute monocytes 0.5 10'3/ uL 0.2-1. 0 Not Available [facility] (Lab) [address] [facility], [place], [address], 12/20/2024 14:38:43 12/18/19 25 12/17/2024 CBC W/DIF F absolute eosinophils 0.1 10'3/ uL 0.0-0. 6 Not Available [facility] (Lab) [address] [facility], [place], [address], 12/20/2024 14:38:43 12/18/19 25 12/17/2024 CBC W/DIF F absolute basophils 0.0 10'3/ uL 0.0-0. 3 Not Available [facility] (Lab) [address] [facility], [place], [address], 12/20/2024 14:38:43 12/18/19 25 12/17/2024 CBC W/DIF [...] augustine book. nm.or g/gen derx Not Available [facility] (Lab) [address] [facility], [place], [address], 12/20/2024 14:38:43 12/18/19 25 12/17/2024 TYPE/ RH/SC REEN ABO/Rh type O POS Not Available [facility] (Lab) [address] [facility], [place], [address], 12/20/2024 14:38:44 12/18/19 25 12/17/2024 TYPE/ RH/SC REEN antibody screen NEG Not Available [facility] (Lab) [address] [facility], [place], [address], 12/20/2024 14:38:44 12/18/19 25 12/17/2024 TYPE/ RH/SC REEN exp date 2024 23:59 Not Available [facility] (Lab) [address] [facility], [place], [address], 12/20/2024 14:38:44 12/18/19 25 12/17/2024 HIV 1/2 ANTIG EN/AN TIBOD Y, REFLE X CONFI RMATI ON HIV antigen/anti body Nonrea ctive nonrea ctive HIV-1 antig en and HIV-1 /HIV- 2 antib odies were not detec tabitha. No labor atory evide nce of HIV infec tion. Not Available [facility] (Lab) [address] [facility], [place], [address], 12/20/2024 14:38:44 12/18/19 25 12/17/2024 HEPAT ITIS B SURFA CE ANTIG EN hepatitis B surface antigen Non-re active non-re active This assay was perfo rmed using [employer] ratio n reage nts and test kits. Value s obtai adrianne with other assay metho ds or kits canno t be used inter limon eably . Not Available [facility] (Lab) [address] [facility], [place], [address], 12/20/2024 14:38:45 12/18/19 25 12/17/2024 HEPAT ITIS C ANTIB ZHENG SCREE N, REFLE X TO CONFI RMATI ON hepatitis C antibody Non-re active non-re active Antib odies to HCV Not Detec tabitha, does not exclu de the possi bilit y of expos ure to HCV. Not Available [facility] (Lab) [address], [place], [address], 12/20/2024 14:38:45 12/18/19 25 12/17/2024 RUBEL LA IGG ANTIB ZHENG, QUANT rubella antibodies, IgG Reacti ve reacti ve Not Available [facility] (Lab) [address], [place], [address], 12/20/2024 14:38:45 12/18/19 25 12/17/2024 RUBEL LA IGG ANTIB ZHENG, QUANT rubella antibodies, IgG quant 63.9 IU/mL >=10 Non-r eacti ve (Non- Immun e) <10 IU/mL React nelson (Immu ne) > or = 10 IU/mL Not Available [facility] (Lab) [address], [place], [address], 12/20/2024 14:38:45 12/18/19 25 12/17/2024 HEMOG LOBIN [...] >8.0% Actio n sugge sted Not Available [facility] (Lab) [address], [place], [address], 12/20/2024 14:38:46 12/18/19 25 12/17/2024 RPR SCREE N, REFLE X TITER /CONF IRMAT ION RPR qualitative Nonrea ctive nonrea ctive Not Available [facility] (Lab) [address], [place], [address], 12/20/2024 14:38:46 12/18/19 25 12/17/2024 drug scree n, urine Amphetamines : negati ve Not Available [facility] [address], [place], [address], 12/17/2024 11:48:35 12/18/19 25 12/17/2024 drug scree n, urine Cannabinoids : negati ve Not Available [facility] [address], [place], [address], 12/17/2024 11:48:35 12/18/19 25 12/17/2024 drug scree n, urine Cocaine: negati ve Not Available [facility] [address], [place], [address], 12/17/2024 11:48:35 12/18/19 25 12/17/2024 drug scree n, urine Opiates: negati ve Not Available [facility] [address], [place], [address], 12/17/2024 11:48:35 12/18/19 25 12/17/2024 drug scree n, urine Phenocyclidi ne: negati ve Not Available [facility] [address], [place], [address], 12/17/2024 11:48:35 12/18/19 25 12/17/2024 drug scree n, urine Barbiturates : negati ve Not Available [facility] [address], [place], [address], 12/17/2024 11:48:35 12/18/19 25 12/17/2024 drug scree n, urine Benzodiazepi gee: negati ve Not Available [facility] [address], [place], [address], 12/17/2024 11:48:35 12/18/19 25 12/17/2024 drug scree n, urine Ethanol: negati ve Not Available [facility] [address], [place], [address], 12/17/2024 11:48:35 12/18/19 25 12/17/2024 drug scree n, urine Hallucinogen s: negati ve Not Available [facility] [address], [place], [address], 12/17/2024 11:48:35 12/18/19 25 12/17/2024 drug scree n, urine Inhalants: negati ve Not Available [facility] [address], [place], [address], 12/17/2024 11:48:35 12/18/19 25 12/17/2024 drug scree n, urine Anabolic Steroids: negati ve Not Available [facility] [address], [place], [address], 12/17/2024 11:48:35 12/18/1912/17/2024 US, obste tric, nucha l trans lucen cy No observ ation record ed. [facility] [address], [place], [address], 12/17/2024 13:01:43 12/18/1912/17/2024 US, obste tric, follo w-up No observ ation record ed. [email or web address] [address], [place], [address], 12/17/2024 12:09:38 12/30/1912/20/2024 robert r monit or No observ ation record ed. [facility] [address], [place], [address], 01/05/2025 21:40:55 12/30/1912/20/2024 robert r monit or No observ ation record ed. [facility] [address], [place], [address], 01/05/2025 21:40:55 01/19/20 25 01/18/2025 US, obste tric, follo w-up No observ ation record ed. [facility] [address], [address], 01/27/2025 09:41:22 01/19/20 25 01/18/2025 US, obste tric, follo w-up No observ ation record ed. [email or web address] [facility] [address], [address], 01/28/2025 11:08:21 02/17/20 25 02/16/2025 US, obste tric, follo w-up No observ ation record ed. [email or web address] [facility] [address] [place] [address], [address], 02/18/2025 10:43:13 02/17/20 25 02/16/2025 US, obste tric, follo w-up No observ ation record ed. [email or web address] [facility] [address], [address], 02/17/2025 14:53:15 02/17/20 25 02/16/2025 US, obste tric No observ ation record ed. [email or web address] [facility] [address], [address], 02/17/2025 14:35:26 Result Notes None recorded. Problems Name Problem SNOMED Code Status Onset Date Resolution Date Notes Provider Name and Address Organization Details Recorded Time [id number] Active Doug el [facility] - [facility] 17:07:59 Problem Notes None recorded. Procedures Surgical History Date Name Laterality Status Provider Name and Address Organization Details Recorded Time 11/12/19 23 Date of Last Pap Smear completed Eryn Oden [facility] 11/15/2024 17:10:58 03/10/19 15 reconstruction of anterior cruciate ligament of knee joint completed Eryn [facility] 11/15/2024 17:15:10 Imaging Results [...] and Address Organization Details Last Updated DateTime 02/25/2025 165.1 cm 28.3 kg/m2 66934.7 g 135/84 mm[Hg] [facility] 02/25/2025 15:57:04 Social History Question Answer Notes LastModified by Organizat ion Details LastModified Time Tobacco Smoking Status Never Smoker Eryn Abner [facility] 11/15/2024 17:14:33 Do You Have An [...] Or The Highest Degree You Have Received? [id number] Information not available 11/15/2024 Are There Any Guns Present In Your Home? No Information not available 11/15/2024 Do You Use Protection During Sex? Usually Information not available 11/15/2024 Do You Use Your Seat Belt Or Car Seat Routinely? Yes Information not available 11/15/2024 Are You Sexually Active? Yes [email or web address] Information not available 12/17/2024 Do You Have [...] Have Difficulty Walking Or Climbing Stairs? No [email or web address] Information not available 12/17/2024 Sex: Unknown Functional [...] available 11/15/2024 Are you currently employed? Yes [email or web address] Information not available 12/17/2024 Are you able to walk independently without assistance or assistive devices? [email or web address] Information not available 11/15/2024 Are you able to care for yourself independently? 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 No [email or web address] Information not available 12/17/2024 What is your exercise level? Moderate Information not available 11/15/2024 Mental Status Question Answer Note LastModified by Organization D etails LastModified Time Do you feel stressed (tense, restless, nervous, or anxious, or unable to sleep at night)? [id number] [email or web address] Information not available 12/17/2024 Family History Relationship [...] ICD10 Code Diagnosis IMO Codes Diagnosis Note [id number] TAWNY GERONIMO MD [facility] [address] [address] 02/25/2025 15:51:23 02/25/2025 16:14:45 History of supraventricular tachycardia [id number] Z86.79 [id number] Gestation period, 23 weeks [id number] Z3A.23 [id number] Health Concerns Section Related Observation LastModified by Organization Detai ls LastModified Time None Recorded Concern Status LastModified by Organization Details LastModified Time None Recorded Payers Encounter Date Sequence Insurance Name Policy Number Policy Gonzalez Covered Member ID Gonzalez Member ID Guarantor Name 02/25/2025 1 [employer] [id number] Varun Buzzard [id number] Varun Bumarc Notes Date Note Type Note Provider Name and Address Organization Details Recorded Time 02/25/2025 text/html Generic HPI TemplateReported by Patient TAWNY GERONIMO MD [address], [place], [address], [facility] 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 Status 12/17/19 25 1 O Positive 157 OPEN Fetus Data First Name Last Name Admitted to NICU Weight (g) Sex Living Outcome Pediatric Complications Fetus ID Race Codes Race Delivery Type [id number] Polo Calculation Initial Polo Date Initial Exam [...] Weight in lbs Pre/Post Dialysis Refused Weight 156.804648059779 BP Diastolic BP Location Tested BP Systolic BP Type 82 L arm 152 sitting 88 122 Fetus Heart Rate Present Fetus Movement A No Comments reviewed previous hx, has mfm referral, no complications with previous vaginal delivery, us 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 No movement yet. Saw M today and was referred to cardiology due to hx of SVT/Afib in last . Symptoms minimal since returning Holter monitor. Anatomy US scheduled with [facility]. RTC 4 weeks. Flowsheet Date 02/25/2025 Oleary Score Blood Edema Fundus Height Fundus Units Glucose Ketones Leukocytes Nitrite Labor Signs Protein Cervic Dilation Cervic Effacement Cervic Station Type Weight in lbs Pre/Post Dialysis Refused Weight 170.630515014097 BP Diastolic BP Location Tested BP Systolic BP Type 84 L arm 135 sitting Fetus Heart Rate Present A 155 Fetus Movement A Yes Comments Good movement. No cram ping or bleeding. Anatomy complete and normal at [facility]. Holter monitor overall reassuring, cardiology appointment [...]
--- OUTSIDE RECORDS SUMMARY | 2025-02-28 10:24 | XMS_ITS | Continuity of Care Document ---
Author Organization [facility] Address [address] [place] [address] [address] [place] [address] Assessment No assessment recorded. Plan of Treatment Reminders Order Date Submit Date Provider Last Modified By Organization Details Last Modified Time Details Appointments OB ROUTINE 2025 11:15A Dereck GERONIMO MD Not available Not available Not available Lab None recorded. Referral None recorded. Procedures None recorded. Surgeries None recorded. Imaging US, obstetric , nuchal transluce ncy 2024 025 [email or web address] Raymond [facility] [address], [address], [place], [address], 12/17/2024 11:40:15 Medication Orders None recorded. Patient TargetsNo targets recorded. Patient InstructionsNo instructions [...] t Abnor mal: No Resul ting Lab: [facility] [address] [facility] [address] Tel: [phone] CULTU RE ----- ----- ----- --- Cultu re resul t (>=3 organ isms prese nt) indic ates possi ble conta minat ion. Repea t cultu re if sympt oms indic ate. Not Available [facility] (Lab) [address] [facility], [place], [address], 12/19/2024 14:02:05 12/18/19 25 12/17/2024 CBC W/DIF F WBC 8.5 10'3/ uL 3.5-10 .5 Not Available [facility] (Lab) [address] [facility], [place], [address], 12/20/2024 14:38:43 12/18/19 25 12/17/2024 CBC W/DIF F RBC 4.70 10'6/ uL (based on docume nted legal sex) 3.80-5 .20 Not Available [facility] (Lab) [address] [facility], [place], [address], 12/20/2024 14:38:43 12/18/19 25 12/17/2024 CBC W/DIF F HGB 13.4 g/dL (based on docume nted legal sex) 11.6-1 5.4 Not Available [facility] (Lab) [address] [facility] [facility], [place], [address], 12/20/2024 14:38:43 12/18/19 25 12/17/2024 CBC W/DIF F HCT 40.7 % (based on docume nted legal sex) 34.0-4 5.0 Not Available [facility] (Lab) [address] [facility], [place], [address], 12/20/2024 14:38:43 12/18/19 25 12/17/2024 CBC W/DIF F MCV 86.6 fL 80.0-9 9.0 Not Available [facility] (Lab) [address] [facility] [facility], [place], [address], 12/20/2024 14:38:43 12/18/19 25 12/17/2024 CBC W/DIF F MCH 28.5 pg 27.0-3 4.0 Not Available [facility] (Lab) [address] [facility], [place], [address], 12/20/2024 14:38:43 12/18/19 25 12/17/2024 CBC W/DIF F MCHC 32.9 g/dL 32.0-3 5.5 Not Available [facility] (Lab) [address] [facility] [facility], [place], [address], 12/20/2024 14:38:43 12/18/19 25 12/17/2024 CBC W/DIF F RDW 13.2 % 11.0-1 5.0 Not Available [facility] (Lab) [address] [facility] [facility], [place], [address], 12/20/2024 14:38:43 12/18/19 25 12/17/2024 CBC W/DIF F plt 307 10'3/ uL 150-40 0 Not Available [facility] (Lab) [address] [facility], [place], [address], 12/20/2024 14:38:43 12/18/19 25 12/17/2024 CBC W/DIF F MPV 9.8 fL 8.8-12 .1 Not Available [facility] (Lab) [address] [facility] [facility], [place], [address], 12/20/2024 14:38:43 12/18/19 25 12/17/2024 CBC W/DIF F NRBC's 0.0 % 0.0 Not Available [facility] (Lab) [address] [facility], [place], [address], 12/20/2024 14:38:43 12/18/19 25 12/17/2024 CBC W/DIF F absolute NRBCs 0.0 10'3/ uL no refere nce range establ ished Not Available [facility] (Lab) [address] [facility], [place], [address], 12/20/2024 14:38:43 12/18/19 25 12/17/2024 CBC W/DIF F neutrophils 68.2 % 34.0-7 3.0 Not Available [facility] (Lab) [address] [facility], [place], [address], 12/20/2024 14:38:43 12/18/19 25 12/17/2024 CBC W/DIF F lymphocytes 23.7 % 15.0-5 0.0 Not Available [facility] (Lab) [address] [facility], [place], [address], 12/20/2024 14:38:43 12/18/19 25 12/17/2024 CBC W/DIF F monocytes 6.4 % 1.0-15 .0 Not Available [facility] (Lab) [address] [facility], [place], [address], 12/20/2024 14:38:43 12/18/19 25 12/17/2024 CBC W/DIF F eosinophils 0.8 % 0.0-8. 0 Not Available [facility] (Lab) [address] [facility], [place], [address], 12/20/2024 14:38:43 12/18/19 25 12/17/2024 CBC W/DIF F basophils 0.5 % 0.0-2. 0 Not Available [facility] (Lab) [address] [facility], [place], [address], 12/20/2024 14:38:43 12/18/19 25 12/17/2024 CBC W/DIF [...] separ ately if prese nt. Not Available [facility] (Lab) [address] [facility], [place], [address], 12/20/2024 14:38:43 12/18/19 25 12/17/2024 CBC W/DIF F absolute neutrophils 5.8 10'3/ uL 1.5-8. 0 Not Available [facility] (Lab) [address] [facility], [place], [address], 12/20/2024 14:38:43 12/18/19 25 12/17/2024 CBC W/DIF F absolute lymphocytes 2.0 10'3/ uL 1.0-4. 0 Not Available [facility] (Lab) [address] [facility], [place], [address], 12/20/2024 14:38:43 12/18/19 25 12/17/2024 CBC W/DIF F absolute monocytes 0.5 10'3/ uL 0.2-1. 0 Not Available [facility] (Lab) [address] [facility] [facility], [place], [address], 12/20/2024 14:38:43 12/18/19 25 12/17/2024 CBC W/DIF F absolute eosinophils 0.1 10'3/ uL 0.0-0. 6 Not Available [facility] (Lab) [address] [facility], [place], [address], 12/20/2024 14:38:43 12/18/19 25 12/17/2024 CBC W/DIF F absolute basophils 0.0 10'3/ uL 0.0-0. 3 Not Available [facility] (Lab) [address] [facility] [facility], [place], [address], 12/20/2024 14:38:43 12/18/19 25 12/17/2024 CBC W/DIF F absolute immature granulocytes 0.0 10'3/ uL 0.00-0 .10 Refer ence range s for nonbi nary/ inter sex or unspe cifie d gende r patie nts have not been estab lishe d. Pleas e refer [facility] table for range s estab lishe d for cisge nder patie nts and evalu ate in the clini miya carlos xt of the indiv idual patie nt: https :[email or web address] augustine book. nm.or g/gen derx Not Available [facility] (Lab) [address] [facility], [place], [address], 12/20/2024 14:38:43 12/18/19 25 12/17/2024 TYPE/ RH/SC REEN ABO/Rh type O POS Not Available [facility] (Lab) [address] [facility], [place], [address], 12/20/2024 14:38:44 12/18/19 25 12/17/2024 TYPE/ RH/SC REEN antibody screen NEG Not Available [facility] (Lab) [address], [place], [address], 12/20/2024 14:38:44 12/18/19 25 12/17/2024 TYPE/ RH/SC REEN exp date 2024 23:59 Not Available [facility] (Lab) [address] [facility], [place], [address], 12/20/2024 14:38:44 12/18/19 25 12/17/2024 HIV 1/2 ANTIG EN/AN TIBOD Y, REFLE X CONFI RMATI ON HIV antigen/anti body Nonrea ctive nonrea ctive HIV-1 antig en and HIV-1 /HIV- 2 antib odies were not detec tabitha. No labor atory evide nce of HIV infec tion. Not Available [facility] (Lab) [address] [facility], [place], [address], 12/20/2024 14:38:44 12/18/19 25 12/17/2024 HEPAT ITIS B SURFA CE ANTIG EN hepatitis B surface antigen Non-re active non-re active This assay was perfo rmed using [employer] ratio n reage nts and test kits. Value s obtai adrianne with other assay metho ds or kits canno t be used inter limon eably . Not Available [facility] (Lab) [address] [facility], [place], [address], 12/20/2024 14:38:45 12/18/19 25 12/17/2024 HEPAT ITIS C ANTIB ZHENG SCREE N, REFLE X TO CONFI RMATI ON hepatitis C antibody Non-re active non-re active Antib odies to HCV Not Detec tabitha, does not exclu de the possi bilit y of expos ure to HCV. Not Available [facility] (Lab) [address], [place], [address], 12/20/2024 14:38:45 12/18/19 25 12/17/2024 RUBEL LA IGG ANTIB ZHENG, QUANT rubella antibodies, IgG Reacti ve reacti ve Not Available [facility] (Lab) [address], [place], [address], 12/20/2024 14:38:45 12/18/19 25 12/17/2024 RUBEL LA IGG ANTIB ZHENG, QUANT rubella antibodies, IgG quant 63.9 IU/mL >=10 Non-r eacti ve (Non- Immun e) <10 IU/mL React nelson (Immu ne) > or = 10 IU/mL Not Available [facility] (Lab) [address], [place], [address], 12/20/2024 14:38:45 12/18/19 25 12/17/2024 HEMOG LOBIN [...] >8.0% Actio n sugge sted Not Available [facility] (Lab) [address], [place], [address], 12/20/2024 14:38:46 12/18/19 25 12/17/2024 RPR SCREE N, REFLE X TITER /CONF IRMAT ION RPR qualitative Nonrea ctive nonrea ctive Not Available [facility] (Lab) [address] [facility], [place], [address], 12/20/2024 14:38:46 12/18/19 25 12/17/2024 drug scree n, urine Amphetamines : negati ve Not Available [facility] [address], [place], [address], 12/17/2024 11:48:35 12/18/19 25 12/17/2024 drug scree n, urine Cannabinoids : negati ve Not Available [facility] [address], [place], [address], 12/17/2024 11:48:35 12/18/19 25 12/17/2024 drug scree n, urine Cocaine: negati ve Not Available [facility] [address], [place], [address], 12/17/2024 11:48:35 12/18/19 25 12/17/2024 drug scree n, urine Opiates: negati ve Not Available [facility] [address], [place], [address], 12/17/2024 11:48:35 12/18/19 25 12/17/2024 drug scree n, urine Phenocyclidi ne: negati ve Not Available [facility] [address], [place], [address], 12/17/2024 11:48:35 12/18/19 25 12/17/2024 drug scree n, urine Barbiturates : negati ve Not Available [facility] [address], [place], [address], 12/17/2024 11:48:35 12/18/19 25 12/17/2024 drug scree n, urine Benzodiazepi gee: negati ve Not Available [facility] [address], [place], [address], 12/17/2024 11:48:35 12/18/19 25 12/17/2024 drug scree n, urine Ethanol: negati ve Not Available [facility] [address], [place], [address], 12/17/2024 11:48:35 12/18/19 25 12/17/2024 drug scree n, urine Hallucinogen s: negati ve Not Available [facility] [address], [place], [address], 12/17/2024 11:48:35 12/18/19 25 12/17/2024 drug scree n, urine Inhalants: negati ve Not Available [facility] [address], [place], [address], 12/17/2024 11:48:35 12/18/19 25 12/17/2024 drug scree n, urine Anabolic Steroids: negati ve Not Available [facility] [address], [place], [address], 12/17/2024 11:48:35 12/18/19 25 12/17/2024 US, obste tric, nucha l trans lucen cy No observ ation record ed. [facility] [address], [place], [address], 12/17/2024 13:01:43 12/18/1912/17/2024 US, obste tric, follo w-up No observ ation record ed. [email or web address] [facility] [address], [place], [address], 12/17/2024 12:09:38 12/30/1912/20/2024 robert r monit or No observ ation record ed. [facility] [address] [facility] [address] [place] [address], [address], 01/05/2025 21:40:55 12/30/19 25 12/20/2024 robert r monit or No observ ation record ed. [facility] (Cardiology & Emg) [address] [facility] [address], [place], [address], 01/05/2025 21:40:55 01/19/20 25 01/18/2025 US, obste tric, follo w-up No observ ation record ed. [email or web address] [facility] [place] [address] [place], [address], 01/27/2025 09:41:22 01/19/20 25 01/18/2025 US, obste tric, follo w-up No observ ation record ed. [facility] [address] [place], [address], 01/28/2025 11:08:21 02/17/20 25 02/16/2025 US, obste tric, follo w-up No observ ation record ed. [email or web address] [facility] [address] [place] [address], [address], 02/18/2025 10:43:13 02/17/20 25 02/16/2025 US, obste tric, follo w-up No observ ation record ed. [email or web address] [facility] [address] [place] [address], [address], 02/17/2025 14:53:15 02/17/20 25 02/16/2025 US, obste tric No observ ation record ed. [email or web address] [facility] [address] [place] [address], [address], 02/17/2025 14:35:26 Result Notes None recorded. Problems Name Problem SNOMED Code Status Onset Date Resolution Date Notes Provider Name and Address Organization Details Recorded Time [id number] Active 025 Leslie Medina [facility] 17:07:59 Problem Notes None recorded. Procedures Surgical History Date Name Laterality Status Provider Name and Address Organization Details Recorded Time 11/12/19 23 Date of Last Pap Smear completed [facility] 11/15/2024 17:10:58 03/10/19 15 reconstruction of anterior cruciate ligament of knee joint completed [facility] 11/15/2024 17:15:10 Imaging Results None recorded. [...] DateTime 12/17/2024 122/88 mm[Hg] Janay Amaya CNM [address], [place], [address], [facility] 12/17/2024 12:02:13 Date Recorded Body height Body mass index (BMI) Body weight Systolic And Diastolic Provider Name and Address Organization Details Last Updated DateTime 12/17/2024 165.1 cm 26 kg/m2 35524.41 g 152/82 mm[Hg] Leslie Medina [facility] 12/17/2024 11:38:56 Social History Question Answer Notes LastModified by Organizat ion Details LastModified Time Tobacco Smoking Status Never Smoker Erynkeira el [facility] 11/15/2024 17:14:33 Do You Have An [...] Or The Highest Degree You Have Received? [id number] Information not available 11/15/2024 Are There Any [...] Have Difficulty Walking Or Climbing Stairs? No [email or web address] Information not available 12/17/2024 Sex: Unknown Functional [...] available 11/15/2024 Are you currently employed? Yes [email or web address] Information not available 12/17/2024 Are you able to walk independently without assistance or assistive devices? [email or web address] Information not available 11/15/2024 Are you able to care for yourself independently? 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 No [email or web address] Information not available 12/17/2024 What is your exercise level? Moderate Information not available 11/15/2024 Mental Status Question Answer Note LastModified by Organization D etails LastModified Time Do you feel stressed (tense, restless, nervous, or anxious, or unable to sleep at night)? [id number] [email or web address] Information not available 12/17/2024 Family History Relationship [...] ICD10 Code Diagnosis IMO Codes Diagnosis Note [id number] Janay Amaya CNM [facility] [address] [address] 12/17/2024 10:55:00 12/17/2024 12:16:20 care status [id number] Z34.91 [id number] Supraventr icular tachycardia 0020922 I47.10 [id number] Aniceto Mcdonald MD [facility] [address] [address] 12/17/2024 10:56:39 12/17/2024 11:28:31 screening [id number] Z36.82 Z3A.13 [id number] Health Concerns Section Related Observation LastModified by Organization Detai ls LastModified Time None Recorded Concern Status LastModified by Organization Details LastModified Time None Recorded Payers Encounter Date Sequence Insurance Name Policy Number Policy Gonzalez Covered Member ID Gonzalez Member ID Guarantor Name 12/17/2024 1 [employer] [id number] Varun Schmitz [id number] Varun Schmitz OBGyn Episode Ob Episode Information Episode Created Date Number of Fetuses Patient Bloodtype Patient rh Status Prepregnancy Weight lbs Domestic Partner Domestic Partner Phone Father Name Furnace Packer Status 12/17/19 25 1 O Positive 157 OPEN Fetus Data First Name Last Name Admitted to NICU Weight (g) Sex Living Outcome Pediatric Complications Fetus ID Race Codes Race Delivery Type [id number] Polo Calculation Initial Polo Date Initial Exam [...] Weight in lbs Pre/Post Dialysis Refused Weight 156.501058034071 BP Diastolic BP Location Tested BP Systolic BP Type 82 L arm 152 sitting 88 122 Fetus Heart Rate Present Fetus Movement A No Comments reviewed previous hx, has mfm referral, no complications with previous vaginal delivery, us reviewed, plan telemetry monitor for complaints of skipped beats only at hs, precautions and education f/u 4 weeks Flowsheet Date 01/18/2025 Oleary Score Blood Edema Fundus Height Fundus Units Glucose Ketones Leukocytes Nitrite Labor Signs Protein Cervic Dilation Cervic Effacement Cervic Station Type Weight in lbs Pre/Post Dialysis Refused Weight 160.498818222996 BP Diastolic BP Location Tested BP Systolic BP Type 74 L arm 127 sitting Fetus Heart Rate Present A 155 Fetus Movement A No Comments Doing well, nausea improved. No movement yet. Saw MFM today and was referred to cardiology due to hx of SVT/Afib in last . Symptoms minimal since returning Holter monitor. Anatomy US scheduled with [facility]. RTC 4 weeks. Flowsheet Date 02/25/2025 Oleary Score Blood Edema Fundus Height Fundus Units Glucose Ketones Leukocytes Nitrite Labor Signs Protein Cervic Dilation Cervic Effacement Cervic Station Type Weight in lbs Pre/Post Dialysis Refused Weight 170.431486686243 BP Diastolic BP Location Tested BP Systolic BP Type 84 L arm 135 sitting Fetus Heart Rate Present A 155 Fetus Movement A Yes Comments Good movement. No cram ping or bleeding. Anatomy complete and normal at [facility]. Holter monitor overall reassuring, cardiology appointment next [...]
--- OUTSIDE RECORDS SUMMARY | 2025-02-28 10:24 | XMS_ITS | Data Portability ---
Author Organization [facility] Address [address] [place] [address] [place] [address] Assessment No assessment recorded. Plan of Treatment Reminders Order Date Submit Date Provider Last Modified By Organization Details Last Modified Time Details Appointments OB ROUTINE 2025 11:15A Dereck GERONIMO MD Not available Not available Not available Lab drug screen, urine [address], [address], [place], [address], 12/17/2024 11:51:29 Referral None recorded. Procedures None recorded. Surgeries None recorded. Imaging US, obstetric , nuchal transluce ncy 2024 [address], [address], [place], [address], 12/17/2024 11:40:15 US, obstetric , transvagi nal 2024 [address], [address], [place], [address], 11/16/2024 19:42:30 Medication Orders Adult Low Dose Aspirin 81 mg tablet,de layed release 2024 025 [id number], [address], [place], [place], [id number], 12/17/2024 11:58:12 Patient TargetsNo targets recorded. Patient InstructionsNo instructions recorded. Reason for Referral None Reported. Results Created Date Observation Date Name Description Value Unit Range Abnormal Flag Note LastModifiedBy Organization Detail LastModifiedTime 11/16/1911/15/2024 CT/GC AND TRICH OMONA S VAGIN AI (RRNA ), URINE chlamydia trachomatis, PCR Negati ve negati ve Not Available [facility] (Lab) [address] [facility], [place], [address], 11/16/2024 14:47:12 11/16/1911/15/2024 CT/GC AND TRICH OMONA S VAGIN AI (RRNA ), URINE neisseria gonorrhoeae, PCR Negati ve negati ve Not Available [facility] (Lab) [address] [facility], [place], [address], 11/16/2024 14:47:12 11/16/19 25 11/15/2024 CT/GC AND TRICH OMONA S VAGIN AI (RRNA ), URINE trichomonas vaginalis ribosomal RNA (rrna) Negati ve negati ve Not Available [facility] (Lab) [address] [facility], [place], [address], 11/16/2024 14:47:12 12/18/1912/17/2024 CULTU RE: URINE result report SEE RESULT S BELOW Test: Cultu re: Urine Speci men Sourc e: Urine - Clean Catch Speci men Type: Urine Speci men Date: 12/17 1106 Resul t Date: 12/19 1259 Resul t Statu s: Final resul t Abnor mal: No Resul ting Lab: [facility] [address] [facility] [address] Tel: CULTU RE ----- ----- ----- --- Cultu re resul t (>=3 organ isms prese nt) indic ates possi ble conta minat ion. Repea t cultu re if sympt oms indic ate. Not Available [facility] (Lab) [address] [facility], [place], [address], 12/19/2024 14:02:05 12/18/19 25 12/17/2024 CBC W/DIF F WBC 8.5 10'3/ uL 3.5-10 .5 Not Available [facility] (Lab) [address] [facility], [place], [address], 12/20/2024 14:38:43 12/18/19 25 12/17/2024 CBC W/DIF F RBC 4.70 10'6/ uL (based on docume nted legal sex) 3.80-5 .20 Not Available [facility] (Lab) [address] [facility], [place], [address], 12/20/2024 14:38:43 12/18/19 25 12/17/2024 CBC W/DIF F HGB 13.4 g/dL (based on docume nted legal sex) 11.6-1 5.4 Not Available [facility] (Lab) [address] [facility], [place], [address], 12/20/2024 14:38:43 12/18/19 25 12/17/2024 CBC W/DIF F HCT 40.7 % (based on docume nted legal sex) 34.0-4 5.0 Not Available [facility] (Lab) [address] [facility], [place], [address], 12/20/2024 14:38:43 12/18/19 25 12/17/2024 CBC W/DIF F MCV 86.6 fL 80.0-9 9.0 Not Available [facility] (Lab) [address] [facility], [place], [address], 12/20/2024 14:38:43 12/18/19 25 12/17/2024 CBC W/DIF F MCH 28.5 pg 27.0-3 4.0 Not Available [facility] (Lab) [address] [facility], [place], [address], 12/20/2024 14:38:43 12/18/19 25 12/17/2024 CBC W/DIF F MCHC 32.9 g/dL 32.0-3 5.5 Not Available [facility] (Lab) [address] [facility], [place], [address], 12/20/2024 14:38:43 12/18/19 25 12/17/2024 CBC W/DIF F RDW 13.2 % 11.0-1 5.0 Not Available [facility] (Lab) [address] [facility], [place], [address], 12/20/2024 14:38:43 12/18/19 25 12/17/2024 CBC W/DIF F plt 307 10'3/ uL 150-40 0 Not Available [facility] (Lab) [address] [facility], [place], [address], 12/20/2024 14:38:43 12/18/19 25 12/17/2024 CBC W/DIF F MPV 9.8 fL 8.8-12 .1 Not Available [facility] (Lab) [address] [facility], [place], [address], 12/20/2024 14:38:43 12/18/19 25 12/17/2024 CBC W/DIF F NRBC's 0.0 % 0.0 Not Available [facility] (Lab) [address] [facility], [place], [address], 12/20/2024 14:38:43 12/18/19 25 12/17/2024 CBC W/DIF F absolute NRBCs 0.0 10'3/ uL no refere nce range establ ished Not Available [facility] (Lab) [address] [facility], [place], [address], 12/20/2024 14:38:43 12/18/19 25 12/17/2024 CBC W/DIF F neutrophils 68.2 % 34.0-7 3.0 Not Available [facility] (Lab) [address] [facility], [place], [address], 12/20/2024 14:38:43 12/18/19 25 12/17/2024 CBC W/DIF F lymphocytes 23.7 % 15.0-5 0.0 Not Available [facility] (Lab) [address] [facility], [place], [address], 12/20/2024 14:38:43 12/18/19 25 12/17/2024 CBC W/DIF F monocytes 6.4 % 1.0-15 .0 Not Available [facility] (Lab) [address] [facility], [place], [address], 12/20/2024 14:38:43 12/18/19 25 12/17/2024 CBC W/DIF F eosinophils 0.8 % 0.0-8. 0 Not Available [facility] (Lab) [address] [facility], [place], [address], 12/20/2024 14:38:43 12/18/19 25 12/17/2024 CBC W/DIF F basophils 0.5 % 0.0-2. 0 Not Available [facility] (Lab) [address] [facility], [place], [address], 12/20/2024 14:38:43 12/18/19 25 12/17/2024 CBC W/DIF [...] separ ately if prese nt. Not Available [facility] (Lab) [address] [facility], [place], [address], 12/20/2024 14:38:43 12/18/19 25 12/17/2024 CBC W/DIF F absolute neutrophils 5.8 10'3/ uL 1.5-8. 0 Not Available [facility] (Lab) [address] [facility], [place], [address], 12/20/2024 14:38:43 12/18/19 25 12/17/2024 CBC W/DIF F absolute lymphocytes 2.0 10'3/ uL 1.0-4. 0 Not Available [facility] (Lab) [address] [facility], [place], [address], 12/20/2024 14:38:43 12/18/19 25 12/17/2024 CBC W/DIF F absolute monocytes 0.5 10'3/ uL 0.2-1. 0 Not Available [facility] (Lab) [address] [facility], [place], [address], 12/20/2024 14:38:43 12/18/19 25 12/17/2024 CBC W/DIF F absolute eosinophils 0.1 10'3/ uL 0.0-0. 6 Not Available [facility] (Lab) [address] [facility], [place], [address], 12/20/2024 14:38:43 12/18/19 25 12/17/2024 CBC W/DIF F absolute basophils 0.0 10'3/ uL 0.0-0. 3 Not Available [facility] (Lab) [address] [facility], [place], [address], 12/20/2024 14:38:43 12/18/19 25 12/17/2024 CBC W/DIF [...] nts and evalu ate in the clini miay carlos xt of the indiv idual patie nt: https ://josr augustine book. nm.or g/gen derx Not Available [facility] (Lab) [address] [facility], [place], [address], 12/20/2024 14:38:43 12/18/19 25 12/17/2024 TYPE/ RH/SC REEN ABO/Rh type O POS Not Available [facility] (Lab) [address], [place], [address], 12/20/2024 14:38:44 12/18/19 25 12/17/2024 TYPE/ RH/SC REEN antibody screen NEG Not Available [facility] (Lab) [address], [place], [address], 12/20/2024 14:38:44 12/18/19 25 12/17/2024 TYPE/ RH/SC REEN exp date 2024 23:59 Not Available [facility] (Lab) [address] [facility], [place], [address], 12/20/2024 14:38:44 12/18/19 25 12/17/2024 HIV 1/2 ANTIG EN/AN TIBOD Y, REFLE X CONFI RMATI ON HIV antigen/anti body Nonrea ctive nonrea ctive HIV-1 antig en and HIV-1 /HIV- 2 antib odies were not detec tabitha. No labor atory evide nce of HIV infec tion. Not Available [facility] (Lab) [address] [facility], [place], [address], 12/20/2024 14:38:44 12/18/19 25 12/17/2024 HEPAT ITIS B SURFA CE ANTIG EN hepatitis B surface antigen Non-re active non-re active This assay was perfo rmed using [employer] ratio n reage nts and test kits. Value s obtai adrianne with other assay metho ds or kits canno t be used inter limon eably . Not Available [facility] (Lab) [address], [place], [address], 12/20/2024 14:38:45 12/18/19 25 12/17/2024 HEPAT ITIS C ANTIB ZHENG SCREE N, REFLE X TO CONFI RMATI ON hepatitis C antibody Non-re active non-re active Antib odies to HCV Not Detec tabitha, does not exclu de the possi bilit y of expos ure to HCV. Not Available [facility] (Lab) [address], [place], [address], 12/20/2024 14:38:45 12/18/19 25 12/17/2024 RUBEL LA IGG ANTIB ZHENG, QUANT rubella antibodies, IgG Reacti ve reacti ve Not Available [facility] (Lab) [address] [facility], [place], [address], 12/20/2024 14:38:45 12/18/19 25 12/17/2024 RUBEL LA IGG ANTIB ZHENG, QUANT rubella antibodies, IgG quant 63.9 IU/mL >=10 Non-r eacti ve (Non- Immun e) <10 IU/mL React nelson (Immu ne) > or = 10 IU/mL Not Available [facility] (Lab) [address] [facility], [place], [address], 12/20/2024 14:38:45 12/18/19 25 12/17/2024 HEMOG LOBIN [...] >8.0% Actio n sugge sted Not Available [facility] (Lab) [address], [place], [address], 12/20/2024 14:38:46 12/18/19 25 12/17/2024 RPR SCREE N, REFLE X TITER /CONF IRMAT ION RPR qualitative Nonrea ctive nonrea ctive Not Available [facility] (Lab) [address], [place], [address], 12/20/2024 14:38:46 12/18/1912/17/2024 drug scree n, urine Amphetamines : negati ve Not Available [facility] [address], [place], [address], 12/17/2024 11:48:35 12/18/19 25 12/17/2024 drug scree n, urine Cannabinoids : negati ve Not Available [facility] [address], [place], [address], 12/17/2024 11:48:35 12/18/19 25 12/17/2024 drug scree n, urine Cocaine: negati ve Not Available [facility] [address], [place], [address], 12/17/2024 11:48:35 12/18/19 25 12/17/2024 drug scree n, urine Opiates: negati ve Not Available [facility] [address], [place], [address], 12/17/2024 11:48:35 12/18/19 25 12/17/2024 drug scree n, urine Phenocyclidi ne: negati ve Not Available [facility] [address], [place], [address], 12/17/2024 11:48:35 12/18/19 25 12/17/2024 drug scree n, urine Barbiturates : negati ve Not Available [facility] [address], [place], [address], 12/17/2024 11:48:35 12/18/19 25 12/17/2024 drug scree n, urine Benzodiazepi gee: negati ve Not Available [facility] [address], [place], [address], 12/17/2024 11:48:35 12/18/19 25 12/17/2024 drug scree n, urine Ethanol: negati ve Not Available [facility] [address], [place], [address], 12/17/2024 11:48:35 12/18/19 25 12/17/2024 drug scree n, urine Hallucinogen s: negati ve Not Available [facility] [address], [place], [address], 12/17/2024 11:48:35 12/18/19 25 12/17/2024 drug scree n, urine Inhalants: negati ve Not Available [facility] [address], [place], [address], 12/17/2024 11:48:35 12/18/19 25 12/17/2024 drug scree n, urine Anabolic Steroids: negati ve Not Available [facility] [address], [place], [address], 12/17/2024 11:48:35 11/16/19 25 11/15/2024 US, obste tric, trans vagin al No observ ation record ed. [email or web address] [facility] [address], [place], [address], 11/15/2024 18:18:42 11/16/19 25 11/15/2024 US, obste tric, follo w-up No observ ation record ed. [email or web address] [address] [facility] [address], [place], [address], 11/18/2024 13:27:51 12/18/19 25 12/17/2024 US, obste tric, nucha l trans lucen cy No observ ation record ed. [email or web address] [address], [place], [address], 12/17/2024 13:01:43 12/18/19 25 12/17/2024 US, obste tric, follo w-up No observ ation record ed. [email or web address] [address], [place], [address], 12/17/2024 12:09:38 12/30/1912/20/2024 robert r monit or No observ ation record ed. [address], [address], 01/05/2025 21:40:55 12/30/1912/20/2024 robert r monit or No observ ation record ed. [facility] ([facility] [address] [place] [address], [address], 01/05/2025 21:40:55 01/19/20 25 01/18/2025 US, obste tric, follo w-up No observ ation record ed. [email or web address] [facility] [address] [place] [address], [address], 01/27/2025 09:41:22 01/19/20 25 01/18/2025 US, obste tric, follo w-up No observ ation record ed. [email or web address] [facility] [address] [place] [address], [address], 01/28/2025 11:08:21 02/17/20 25 02/16/2025 US, obste tric, follo w-up No observ ation record ed. [email or web address] [facility] [address] [place] [address], [address], 02/18/2025 10:43:13 02/17/20 25 02/16/2025 US, obste tric, follo w-up No observ ation record ed. [email or web address] [facility] [address] [place] [address], [address], 02/17/2025 14:53:15 02/17/20 25 02/16/2025 US, obste tric No observ ation record ed. [email or web address] [facility] [address] [place], [address], 02/17/2025 14:35:26 Result Notes None recorded. Problems Name Problem SNOMED Code Status Onset Date Resolution Date Notes Provider Name and Address Organization Details Recorded Time [id number] Active 025 Leslie Medina [facility] 17:07:59 Problem Notes None recorded. Procedures Surgical History Date Name Laterality Status Provider Name and Address Organization Details Recorded Time 11/12/19 23 Date of Last Pap Smear completed [facility] 11/15/2024 17:10:58 03/10/19 15 reconstruction of anterior cruciate ligament of knee joint completed [facility] 11/15/2024 17:15:10 Imaging Results None [...] Updated DateTime 11/15/2024 165.1 cm 26.1 kg/m2 40372 g 127/78 mm[Hg] [facility] 11/15/2024 17:08:52 Date Recorded Systolic And Diastolic Provider Name and Address Organization Details Last Updated DateTime 12/17/2024 122/88 mm[Hg] Janay Amaya CNM [address], [place], [address], [facility] 12/17/2024 12:02:13 Date Recorded Body height Body mass index (BMI) Body weight Systolic And Diastolic Provider Name and Address Organization Details Last Updated DateTime 12/17/2024 165.1 cm 26 kg/m2 15082.41 g 152/82 mm[Hg] Leslie Medina [facility] 12/17/2024 11:38:56 Date Recorded Body height Body mass index (BMI) Body weight Systolic And Diastolic Provider Name and Address Organization Details Last Updated DateTime 01/18/2025 165.1 cm 26.6 kg/m2 47266.78 g 127/74 mm[Hg] Eryn Akshat [facility] 01/18/2025 12:20:11 Date Recorded Body height Body mass index (BMI) Body weight Systolic And Diastolic Provider Name and Address Organization Details Last Updated DateTime 02/25/2025 165.1 cm 28.3 kg/m2 59460.7 g 135/84 mm[Hg] GAY CIERA [facility] 02/25/2025 15:57:04 Social History Question Answer Notes LastModified by Organizat ion Details LastModified Time Tobacco Smoking Status Never Smoker Erynelijah Hustoner null, [facility] 11/15/2024 17:14:33 Do You Have [...] Or The Highest Degree You Have Received? DW88325-2 Information not available 11/15/2024 Are There Any [...] Have Difficulty Walking Or Climbing Stairs? No [email or web address] Information not available 12/17/2024 Sex: Unknown Functional [...] available 11/15/2024 Are you currently employed? Yes [email or web address] Information not available 12/17/2024 Are you able to walk independently without assistance or assistive devices? [email or web address] Information not available 11/15/2024 Are you able to care for yourself independently? 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 No [email or web address] Information not available 12/17/2024 What is your exercise level? Moderate Information not available 11/15/2024 Mental Status Question Answer Note LastModified by Organization D etails LastModified Time Do you feel stressed (tense, restless, nervous, or anxious, or unable to sleep at night)? [id number] [email or web address] Information not available 12/17/2024 Family History Relationship [...] ICD10 Code Diagnosis IMO Codes Diagnosis Note [id number] Aniceto Mcdonald MD [facility] [address],[place] [address] 11/15/2024 16:19:50 11/15/2024 16:54:43 Uterine size for dates discrepancy 629157266 O26.841 Z3A.01 9316780 [id number] Aniceto Mcdonald MD [facility] [address],[place] [address] 11/15/2024 16:21:39 11/15/2024 17:59:46 Amenorrhea 41595533 N91.2 20211 this patient is a 29-year-ol d female [...] AFib in . Was on metoprolol . [id number] Janay Amaya CNM [facility] [address],[place] [address] 12/17/2024 10:55:00 12/17/2024 12:16:20 care status 154609418 Z34.91 [id number] Supraventr icular tachycardia 4907939 I47.10 76291 786836 Aniceto Mcdonald MD [facility] [address],[place] [address] 12/17/2024 10:56:39 12/17/2024 11:28:31 screening 508174893 Z36.82 Z3A.13 053714 [id number] TAWNY GERONIMO MD [facility] [address] [address] 01/18/2025 11:47:43 01/18/2025 12:44:30 care status 902510453 Z34.82 88104846 905107 TAWNY GERONIMO MD [facility] [address] [address] 02/25/2025 15:51:23 02/25/2025 16:14:45 History of supraventricular tachycardia 4408273780 4745717 Z86.79 5115434 Gestation period, 23 weeks 91172292 Z3A.23 5175078 Health Concerns Section Related Observation LastModified by Organization Detai ls LastModified Time None Recorded Concern Status LastModified by Organization Details LastModified Time None Recorded Advance Directives Directive N: Payers Insurance Date Sequence Insurance Name Policy Number Policy Gonzalez Covered Member ID Gonzalez Member ID Guarantor Name 02/22/2025 1 [place] [id number] Varun Schmitz [id number] Varun Schmitz Notes Date Note Type [...] She was given recommendations on exercise, diet, wexq-goo-bgyzbiu medications. We reviewed her obstetric history. We reviewed her medical history. We reviewed her social history. She will begin routine care at her next visit. Aniceto Mcdonald MD [address], [place], [address], [facility] 11/15/2024 17:53:48 01/18/2025 text/html Generic HPI TemplateReported by Patient TAWNY GERONIMO MD [address], [place], [address], [facility] 01/18/2025 12:38:33 02/25/2025 text/html Generic HPI TemplateReported by Patient TAWNY GERONIMO MD [address], [place], [address], [place] [facility] 02/25/2025 16:12:59 OBGyn Episode Ob Episode Information Episode Created Date Number of Fetuses Patient Bloodtype Patient rh Status Prepregnancy Weight lbs Domestic Partner Domestic Partner Phone Father Name [employer] Status 11/16/19 25 1 CLOSED Fetus Data First Name Last Name Admitted to NICU Weight (g) Sex Living Outcome Pediatric Complications Fetus ID Race Codes Race Delivery Type 2806.37 3704 M Full Term 75733 Vaginal Delivery Polo Calculation Initial Polo Date [...] Domestic Partner Domestic Partner Phone Father Name [employer] Status 12/17/19 25 1 O Positive 157 OPEN Fetus Data First Name Last Name Admitted to NICU Weight (g) Sex Living Outcome Pediatric Complications Fetus ID Race Codes Race Delivery Type [id number] Polo Calculation Initial Polo Date Initial Exam [...] Weight in lbs Pre/Post Dialysis Refused Weight 156.095795202405 BP Diastolic BP Location Tested BP Systolic BP Type 82 L arm 152 sitting 88 122 Fetus Heart Rate Present Fetus Movement A No Comments reviewed previous hx, has mfm referral, no complications with previous vaginal delivery, us reviewed, 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 No movement yet. Saw [facility] today and was referred to cardiology due to hx of SVT/Afib in last . Symptoms minimal since returning Holter monitor. Anatomy US scheduled with [facility]. RTC 4 weeks. Flowsheet Date 02/25/2025 Oleary Score Blood Edema Fundus Height Fundus Units Glucose Ketones Leukocytes Nitrite Labor Signs Protein Cervic Dilation Cervic Effacement Cervic Station Type Weight in lbs Pre/Post Dialysis Refused Weight 170.551756451377 BP Diastolic BP Location Tested BP Systolic BP Type 84 L arm 135 sitting Fetus Heart Rate Present A 155 Fetus Movement A Yes Comments Good movement. No cram ping or bleeding. Anatomy complete and normal at [facility]. Holter monitor overall reassuring, cardiology appointment [...]
--- OUTSIDE RECORDS SUMMARY | 2025-02-28 10:24 | XMS_ITS | Clinical Summary ---
Author Organization [facility] [address] [place] [address] Care Team Providers Care Medicine Assistant Name Role Phone Unknown, Notinfile Primary Care [...] 7 9 Stetsnelida crawford MD Complications:None Delivery Location:[facility] ([facility] [address]) Comments 2023 - cytotec/pitocin IO L fo h/o a-fib. [facility] [place]. Last Filed Vital Signs Vital Sign Reading [...] AM CDT Narrative 10/16/2023 1:13 PM CDT [facility] Department of Pathology [address] [place] [address] Final Report Note to Patients: This report [...] the details. Patient Name: NELLIE GALLARDO Address: [address] [place] [address] Gender: F : 2000 (Age: 23) Service: Location: N : [id number] [facility] #: [id number] Patient Type: [facility] SPECIMEN Taken: 10/08/2023 Received: 10/13/2023 Accessioned:: 10/13/2023 Reported: 10/16/2023 Physician(s): MD Ellie Morton MD Diagnosis: SOURCE OF SPECIMEN Imaged Thinprep Pap Test w/ Reflex HPV - Marketing Operations Consultant Cytologic Material: STATEMENT OF ADEQUACY - Satisfactory for evaluation; endocervical/transformation zone component present GENERAL CATEGORIZATION: - Negative for intraepithelial lesion or malignancy INTERPRETATION: - Inflammation and associated reactive cellular changes CHARLEEN Peck(ASCP)Thad Brady M.D. Report Electronically Reviewed and Signed Out By Thad Brady M.D. 10/16/2023 13:13:55Specimen(s) Received: A: Imaged Thinprep Pap Test w/ Reflex HPV - Marketing Operations Consultant Cytologic Material Clinical History: Menstrual History: The [...] determined by the Surgical Pathology Department at [facility] as part of an ongoing corporate quality engineer program and in compliance with [...] characteristics determined by the Surgical Pathology Department [facility]. It has not been cleared or approved by the [place]. S. Food and Drug Administration. Ellie Piña MD LAB CYTOLOGY ORDERABL ES Final Result from Last 3 Months or Most Recently Relevant to Health Maintenance Insurance [facility] Care Teams Medicine Assistant Relationship Specialty Start Date End Date Unknown, Notinfile PCP - General 08/25/23
== END 2025-02-28 09:19 | disposition home or self-care (01) ==
PROVIDERS: PCP Internal Medicine; Visit Provider Internal Medicine
DX: R05.9 Cough, unspecified (principal); R06.2 Wheezing; R50.9 Fever, unspecified
CPT/HCPCS: 36415; 71046; 80053; 85027; 87040; 87637; 87651